=== PATIENT | male | born 2000 | race Caucasian/White ===

== ENCOUNTER 2022-01-29 11:11 | Observation (INO) ==
[2022-01-29] MEDS ORDERED: SODIUM CHLORIDE 0.9% 1000ML 1,000 ML IV STA (11:44)
[2022-01-29] MEDS ORDERED: CAPSAICIN CR 0.075% 60 GM TUBE EXT STA (11:44)
[2022-01-29] MEDS ORDERED: METOCLOPRAMIDE HCL INJ 5 MG/ML 2 ML VIAL IV ONE (11:45)
[2022-01-29] MEDS ORDERED: SODIUM CHLORIDE 0.9% 1000ML 1,000 ML IV ONE (11:45)
[2022-01-29] MEDS ORDERED: diphenhydrAMINE 50 MG/ML VIAL IV STA (11:45)
[2022-01-29 12:00] LABS: Basophils # (auto) 0.03 K/uL (0-0.2); Basophils % (auto) 0.4 %; Eosinophils # (auto) 0.03 K/uL (0-0.50); Eosinophils % (auto) 0.4 %; Hematocrit (blood only) 47.6 % (40.1-51.0); Hemoglobin 17.5 g/dl (14.0-18.0); Immature Granulocytes # (auto) 0.03 K/uL (0.00-0.02); Immature Granulocytes % (auto) 0.4 %; Lymphocytes # (auto) 1.21 K/uL (1.2-3.4); Lymphocytes % (auto) 14.5 %; Mean Corpuscular Hemoglobin 32.6 pg (25.0-34.0); Mean Corpuscular Hgb Conc 36.8 g/dL (32.0-36.0); Mean Corpuscular Volume 88.6 fL (80.0-100.0); Mean Platelet Volume 10.2 fL (9.4-12.4); Monocytes # (auto) 0.64 K/uL (0.24-0.82); Monocytes % (auto) 7.7 %; Neutrophils # (auto) 6.42 K/uL (1.4-6.5); Neutrophils % (auto) 76.6 %; Platelet Count 221 K/uL (130-400); RDW Coefficient of Variation 12.5 % (11.5-14.5); RDW Standard Deviation 40.5 fL (36.4-46.3); Red Blood Count 5.37 M/uL (4.63-6.08); White Blood Count 8.36 K/ul (4.8-10.8)
[2022-01-29] MEDS ORDERED: LORazepam 1 MG TAB SL STA (12:00)
--- NOTE | 2022-01-29 12:13 | XRay Report ---
SINGLE VIEW CHEST CLINICAL HISTORY: Atypical chest pain. Nausea and vomiting. FINDINGS: 2 AP, portable, upright chest radiographs are obtained. No prior studies are available for comparison at the time of dictation. The cardiomediastinal silhouette is unremarkable. An accessory a zygous fissure is incidentally noted. The lungs and pleural spaces are clear. No pneumothorax is seen . The bony thorax is grossly intact. IMPRESSION: No active disease in the chest. ACT 112: Negative or not required by law. Electronically signed by: Guillermo Kinney M.D. 01/29/2022 12:12 PM
--- NOTE | 2022-01-29 12:27 | Emergency Department Note ---
History of Present Illness General Chief Complaint: Abdominal Pain Stated Complaint: CHEST PAIN x 3 days Time Seen by Provider: 01/29/22 11:39 History of Present Illness Provider Complaint: abdominal pain Onset (ago): 3 day(s) Pain Consistency: intermittent Location: epigastric Radiation: chest Severity: moderate Maximum Pain Intensity: 8 Current Pain Intensity: 8 Quality: + stabbing and + sharp Relieved By: + eating Exacerbated By: + nothing Context: no foreign travel, no sick contacts, no recent antibiotic use or no recent injury Associated Symptoms: + nausea, + vomiting and + chest pain; no diarrhea, no fever, no chills, no constipation, no dysuria, no hematemesis, no hematochezia, no melena, no hematuria, no anorexia, no headache, no neck pain, no back pain and no breathing difficulty Patient states he is an outpatient appointment scheduled for tomorrow but states he cannot wait that long. Home Medications Medication Instructions Recorded Confirmed Type famotidine 20 mg tablet (Pepcid) 20 mg PO BID 10 days #20 tabs 01/26/22 01/29/22 Rx Allergies Allergy/AdvReac Type Severity Reaction Status Date / Time No Known Allergies Allergy Verified 01/29/22 14:04 Past Med/Surg History Medical History No pertinent family history No pertinent past medical history Surgical History No pertinent past surgical history Social History Smoking Status: Current every day smoker Tobacco Type: Cigarettes Cigarettes Per Day: 20; Second Hand Exposure: No; Do You Dip or Chew Tobacco: No; Hx Alcohol Use: Yes Alcohol type: beer Hx Substance Use: Yes Prescribed Medications: Marijuana Last Used Substance: Days (ago) Preferred Language: Guinean Communication Ability: Effective Onsite Case Manager Required: No Beliefs That Will Affect Care: None Current Living Situation: Parent Other Information That Helps Us Care for You: No Feels Safe at Home: Yes Safety Concerns: Feels Safe At This Time Assistive Devices: None Review of Systems A total of 10 systems reviewed and were otherwise negative Physical Exam Vital Signs: Vital Signs - 24 hr 01/29/22 11:15 01/29/22 12:24 01/29/22 11:44 Temperature 36.2 C L Temperature Source Temporal Artery Sc an Pulse Rate 62 Pulse Rate [Apical ] 57 L Pulse Rhythm Regular Pulse Rhythm [Apic al] Regular Pulse Strength Normal Pulse Strength [Ap ical] Normal Respiratory Rate 24 18 Respiratory Effort / Characteristics Non-Labored Sponta neous Non-Labored Sponta neous Respiratory Depth Normal Normal Respiratory Patter n Regular Regular Blood Pressure [Ri ght Arm] 136/69 Blood Pressure Verena n [Right Arm] 91 Blood Pressure Pos ition Sitting Blood Pressure Pos ition [Right Arm] Lying Pulse Oximetry 99 97 98 Oxygen Delivery Me thod Room Air Room Air Room Air Sepsis Recent Feve r Within 48 Hours No Sepsis New/Unexpla ined Change in Men joan Status No Sepsis Action Take n by Nursing No Action Required 01/29/22 13:31 Temperature Temperature Source Pulse Rate Pulse Rate [Apical ] 61 Pulse Rhythm Pulse Rhythm [Apic al] Regular Pulse Strength Pulse Strength [Ap ical] Respiratory Rate 18 Respiratory Effort / Characteristics Non-Labored Respiratory Depth Normal Respiratory Patter n Regular Blood Pressure [Ri ght Arm] 122/67 Blood Pressure Verena n [Right Arm] 85 Blood Pressure Pos ition Blood Pressure Pos ition [Right Arm] Lying Pulse Oximetry 97 Oxygen Delivery Me thod Room Air Sepsis Recent Feve r Within 48 Hours Sepsis New/Unexpla ined Change in Men joan Status Sepsis Action Take n by Nursing Physical Exam: Physical Exam GENERAL: He is oriented to person, place, and time. He appears well-developed and well-nourished. He does not appear distressed. HENT: Exam performed. - Head: Normocephalic and atraumatic. - Right Ear: External ear normal. No mastoid tenderness. - Left Ear: External ear normal. No mastoid tenderness. - Mouth/Throat: The oropharynx is clear and moist. No trismus in the jaw. No dental abscesses or uvula swelling. No oropharyngeal exudate or tonsillar abscesses. EYES: Conjunctivae and EOM are normal. Pupils are equal, round, and reactive to light. Right eye exhibits no discharge. Left eye exhibits no discharge. No scleral icterus. NECK: Normal range of motion. Neck supple. No JVD present. No spinous process tenderness present. No carotid bruit present. No rigidity. No tracheal deviation and normal range of motion present. No Brudzinski's sign and no Kernig's sign noted. CV: Normal rate, regular rhythm, normal heart sounds and intact distal pulses. There is no peripheral edema. Palpable radial pulses bue. PULM/CHEST: Effort normal and breath sounds normal. No respiratory distress. No stridor. He has no wheezes. He has no rales. - Chest Wall: He exhibits no tenderness. ABD: The abdomen is soft. Bowel sounds are normal. He has no distension. No mass is present. There is no tenderness. There is no rebound, no guarding, no Diamond's sign and no tenderness at McBurney's point. Rovsig negative. MUSC/SKEL: Normal range of motion. There is no peripheral edema, tenderness or deformity. LYMPH: No cervical adenopathy. NEURO: He is alert and oriented to person, place, and time. He has normal strength. No cranial nerve deficit or sensory deficit. Coordination and gait normal. GCS eye subscore is 4. GCS verbal subscore is 5. GCS motor subscore is 6. Cerebellar tests wnl. SKIN: Skin is warm and dry. He is not diaphoretic. PSYCH: He has a normal mood and affect. Behavior is normal. Judgment and thought content normal. Course Course 1139: The patient was evaluated in room C8. A complete history and physical exam was performed Cardiac monitoring: An order was placed for continuous cardiac monitoring. The monitor shows a rate of 60 with sinus rhythm EMR reviewed. This is the patient's third visit to the emergency department last 3 days. The patient's abdominal pain nausea vomiting was thought to be attributed to his spicy food usage, alcohol abuse, and marijuana abuse. Patient has had a CT scan of the abdomen and ultrasound of the abdomen which were negative in the last 3 days. 1300: Vital signs stable. Labs and imaging within normal limits. Given this is the patient's third visit to the emergency department last 3 days, The patient will be admitted to the [facility] service for observation. Administered Medications Acetaminophen (Acetaminophen 325 Mg Tab) 650 mg PO Q6H PRN PRN Reason: pain Stop: 02/28/22 16:04 Last Admin: 01/29/22 16:58 Dose: 650 mg Documented By: SR Sodium Chloride (Nss 1000ml) 1,000 mls @ 80 mls/hr IV .[id number] HUMBLE Stop: 02/28/22 16:04 Last Admin: 01/29/22 16:22 Dose: 80 mls/hr Documented By: MYRON Nicotine (Nicotine 14 Mg/24 Hr Patch) 14 mg TD QAM HUMBLE Stop: 02/28/22 14:44 Last Admin: 01/29/22 15:37 Dose: 14 mg Documented By: MYRON Ondansetron HCl (Ondansetron Inj 2 Mg/Ml 2 Ml Vial) 4 mg IV Q6H PRN PRN Reason: Nausea And Vomiting Stop: 02/28/22 13:36 Last Admin: 01/29/22 16:39 Dose: 4 mg Documented By: SR Discontinued Medications Capsaicin (Capsaicin Cr 0.075% 60 Gm Tube) 1 appln EXT NOW STA Stop: 01/29/22 11:45 Last Admin: 01/29/22 12:13 Dose: 1 appln Documented By: MYRON Diphenhydramine HCl (Diphenhydramine 50 Mg/Ml Vial) 25 mg IV NOW STA Stop: 01/29/22 11:46 Last Admin: 01/29/22 12:13 Dose: 25 mg Documented By: MYRON Sodium Chloride (Nss 1000ml) 1,000 mls @ 999 mls/hr IV .Q1H1M STA Stop: 01/29/22 12:44 Last Infusion: 01/29/22 13:15 Dose: 0 mls/hr Documented By: Admin: 01/29/22 12:14 Dose: 999 mls/hr Documented By: MYRON Sodium Chloride (Nss 1000ml) 1,000 mls @ 999 mls/hr IV .Q1H1M ONE Stop: 01/29/22 12:45 Last Infusion: 01/29/22 13:15 Dose: 0 mls/hr Documented By: Admin: 01/29/22 12:14 Dose: 999 mls/hr Documented By: MYRON Lorazepam (Lorazepam 1 Mg Tab) 1 mg SL NOW STA Stop: 01/29/22 12:01 Last Admin: 01/29/22 12:15 Dose: 1 mg Documented By: MYRON Metoclopramide HCl (Metoclopramide Hcl Inj 5 Mg/Ml 2 Ml Vial) 5 mg IV ONE ONE Stop: 01/29/22 11:46 Last Admin: 01/29/22 12:13 Dose: 5 mg Documented By: MYRON Metoclopramide HCl (Metoclopramide Hcl Inj 5 Mg/Ml 2 Ml Vial) 10 mg IV NOW STA Stop: 01/29/22 18:33 Last Admin: 01/29/22 18:42 Dose: 10 mg Documented By: YOLY Morphine Sulfate (Morphine Sulfate 4 Mg/Ml 1 Ml Carp\Vial) 3 mg IV NOW STA Stop: 01/29/22 17:33 Last Admin: 01/29/22 17:39 Dose: 3 mg Documented By: Medical Decision Making Laboratory Data Result diagrams: 01/29/22 11:50 01/29/22 11:50 Lab Results 01/29/22 01/29/22 01/29/22 Range/Units 11:50 11:50 12:20 WBC 8.36 (4.8-10.8) K/ul RBC 5.37 (4.63-6.08) M/uL Hgb 17.5 (14.0-18.0) g/dl Hct 47.6 (40.1-51.0) % MCV 88.6 (80.0-100.0) fL MCH 32.6 (25.0-34.0) pg MCHC 36.8 H (32.0-36.0) g/dL RDW Std Deviation 40.5 (36.4-46.3) fL RDW Coeff of [place] 12.5 (11.5-14.5) % Plt Count 221 (130-400) K/uL MPV 10.2 (9.4-12.4) fL Immature Gran % (Auto) 0.4 % Neut % (Auto) 76.6 % Lymph % (Auto) 14.5 % [place] % (Auto) 7.7 % Eos % (Auto) 0.4 % Baso % (Auto) 0.4 % Neut # (Auto) 6.42 (1.4-6.5) K/uL Lymph # (Auto) 1.21 (1.2-3.4) K/uL [place] # (Auto) 0.64 (0.24-0.82) K/uL Eos # (Auto) 0.03 (0-0.50) K/uL Baso # (Auto) 0.03 (0-0.2) K/uL Immature Gran # (Auto) 0.03 H (0.00-0.02) K/uL Sodium 142 (136-145) mmol/L Potassium 3.6 (3.5-5.1) mmol/L Chloride 110 H (98-107) mmol/L Carbon Dioxide 22 (21-32) mmol/L Anion Gap 10 (3-11) BUN 11 (6-23) mg/dl Creatinine 1.01 (0.6-1.4) mg/dl Est Cr Clr Drug Dosing 144.5 ml/min Est GFR ( Amer) 121.8 ml/min Est GFR (Non-Af Amer) 105.1 ml/min BUN/Creatinine Ratio 10.9 (10-20) Glucose 103 H (70-99(Fasting)) mg/dl Calcium 9.8 (8.5-10.1) mg/dl Total Bilirubin 1.6 H D (0.2-1.0) mg/dl AST 19 (13-39) U/L ALT 22 (7-52) U/L Alkaline Phosphatase 70 (34-104) U/L Troponin I High Sens 4.4 (0-20) pg/ml Total Protein 7.0 (6.0-8.3) gm/dl Albumin 4.5 (3.4-5.0) gm/dl Globulin 2.5 (2.5-4.0) gm/dl Albumin/Globulin Ratio 1.8 (0.9-2) Lipase 10 L (11-82) U/L SARS-CoV-2, RNA, NAAT NEGATIVE (NEGATIVE) Imaging Data Radiologist's Impression: Chest X-Ray 01/29/22 11:44 SINGLE VIEW CHEST CLINICAL HISTORY: Atypical chest pain. Nausea and vomiting. FINDINGS: 2 AP, portable, upright chest radiographs are obtained. No prior studies are available for comparison at the time of dictation. The cardiomediastinal silhouette is unremarkable. An accessory azygous fissure is incidentally noted. The lungs and pleural spaces are clear. No pneumothorax is seen. The bony thorax is grossly intact. IMPRESSION: No active disease in the chest. ACT 112: Negative or not required by law. Electronically signed by: Guillermo Kinney M.D. 01/29/2022 12:12 PM ECG Data Indication: abdominal pain and chest pain Rate (beats per minute): 61 Rhythm: normal sinus Findings: no ST depression, no ST elevation or no prolonged QT MDM Narrative Vital signs stable. Labs and imaging within normal limits. Given this is the patient's third visit to the emergency department last 3 days, The patient will be admitted to the [facility] service for observation. Impression & Plan Abdominal pain, Intractable nausea and vomiting Discharge Plan Visit Data Chief Complaint: Abdominal Pain Stated Complaint: CHEST PAIN x 3 days ED Provider: Rodrick Connell Discharge Problem: Abdominal pain, Intractable nausea and vomiting Patient Disposition: Admitted As Inpatient Discharge Instructions Interventions: ED Discharge Assessment Last Done: 01/29/22 17:33
[2022-01-29 12:32] LABS: Albumin Globulin Ratio 1.8 (0.9-2); Albumin Level 4.5 gm/dl (3.4-5.0); BUN Creatinine Ratio 10.9 (10-20); Bilirubin,Total 1.6 mg/dl (0.2-1.0); Calcium 9.8 mg/dl (8.5-10.1); Creatinine Clr Calc Pharmacy 144.5 ml/min; Est GFR (African American) 121.8 ml/min; Est GFR (Non-African American) 105.1 ml/min; Globulin 2.5 gm/dl (2.5-4.0); Potassium 3.6 mmol/L (3.5-5.1)
[2022-01-29 12:36] LABS: Troponin I High Sensitivity 4.4 pg/ml (0-20)
--- NOTE | 2022-01-29 12:37 | Electrocardiogram Report ---
Test Reason : Blood Pressure : / mmHG Vent. Rate : 061 BPM Atrial Rate : 061 BPM P-R Int : 148 ms QRS Dur : 118 ms QT Int : 442 ms P-R-T Axes : 059 065 070 degrees QTc Int : 444 ms Sinus rhythm with marked sinus arrhythmia Borderline ECG When compared with ECG of 26-JAN-2022 18:33, Premature supraventricular complexes are no longer Present Confirmed by Gerard Boykin ([id number]) on 01/29/2022 12:37:20 PM Referred By: REFERRED SELF Confirmed By:Layton Boykin
--- NOTE | 2022-01-29 13:13 | History & Physical Report ---
Date of Service January 29, 2022 Assessment & Plan (1) GERD with esophagitis: (2) Nausea & vomiting: (3) Epigastric pain: Plan 21 year old male with h/o tobacco abuse, alcohol abuse, cannabis abuse presented to the ED with intractable N/V/epigastric pain ongoing for the past 3 days. This is is third visit to ED in the past 3 days. RUQ US 01/26- 1. Distended gallbladder containing biliary sludge. 2. No shadowing gallstones are identified and there is no sonographic evidence of acute cholecystitis. CT A/P 01/28 1. Mild circumferential thickening of distal esophagus. This suggests a mild esophagitis. 2. No evidence for bowel obstruction. 3. Normal appendix. 4. No hydronephrosis. N/V/epigastric pain- likely from GERD with esophagitis/gastritis, likely contributed by his tobacco, alcohol abuse and NSAIDs. No ALARM signs. No hematemesis, melena, fever, chills. Labs including CBC, BMP, LFT, lipase unremarkable. CT A/P with mild esophagitis. RUQ US reviewed as above. Patient was discharged on pepcid but continues to have intractable symptoms and could not wait for GI appointment tomorrow and came to the ED. - Will start on protonix bid, iv zofran prn, NSS, diet as tolerated. Maalox prn. - Recommended quitting tobacco, alcohol, cannabis and NSAIDs - Will have GI evaluation while inhouse as this is his third ED visit for the same complaint Tobacco abuse- smokes half pack a day. Declined nicotine patch. Recommended quitting Alcohol abuse- states he was drinking 12-24 pack beer from January 16- but none since then, no hard liquors. Recommenced quitting Cannabis use- uses medical marijuana from a friend. Hasn't use for a week now. Recommended cessation DVT ppx- SCDs. ambulation Full code Dispo- Observation to [facility] History of Present Illness Chief Complaint: N/V/abd pain Primary Care Provider: NO PCP 21 year old male with h/o tobacco abuse, alcohol abuse, cannabis abuse presented to the ED with intractable nausea, vomiting and epigastric pain. Started 3 days ago after eating hot spicy food and came to the ED on 01/26. After evaluation, thought to have gastritis and sent home on pepcid but came back yesterday with persistent symptoms. He was discharged home after symptomatic treatment in ED but came back today with persistent symptoms. He has GI appointment tomorrow but could not wait for it because of the ongoing symptoms and came to the ED. In the ED, he was given NSS, reglan, benadryl, ativan, capsaicin and was quite comfortable during my encounter. States he has burning pain in epigastrium and retrosternal area. Whenever he tries to eat or drink something, it hurts more and he throws up. Symptoms are better if he is not ea ting or drinking anything. States his last meal was probably 4 days ago. No fever, chills, weight loss, hematemesis, hematochezia. He smokes half pack a day and was drinking lots of beer from 01/16-01/22. Also uses medical marijuana daily, last was about a week ago. Uses advil intermittently for his foot pain, last one was 4 tabs of OTC advil 4 days ago. Denies any other medical conditions. Allergies Allergy/AdvReac Type Severity Reaction Status Date / Time No Known Allergies Allergy Verified 01/26/22 21:34 Home Medications Medication Instructions Recorded Confirmed Type cephalexin 500 mg tablet 500 mg PO QID 01/26/22 01/26/22 History doxycycline monohydrate 100 mg 100 mg PO BID 01/26/22 01/26/22 History tablet famotidine 20 mg tablet (Pepcid) 20 mg PO BID 10 days #20 tabs 01/26/22 Rx Past Med/Surg History Medical History No pertinent family history No pertinent past medical history Surgical History No pertinent past surgical history Social History Smoking Status: Current every day smoker Tobacco Type: Cigarettes Hx Alcohol Use: Yes Hx Substance Use: Yes Prescribed Medications: Marijuana Preferred Language: Frisian Feels Safe at Home: Yes Review of Systems Review of Systems: All systems reviewed & are unremarkable except as noted in Subjective Physical Exam Physical Exam: General: Lying comfortably in bed, not in distress, on room air HEENT: EOMI, TEE, MMM Chest: Clear breath sounds bilaterally, no wheezes or crackles CVS: Regular rate and rhythm, normal heart sounds, no murmur Abdomen: Soft, epigastric tenderness, not distended, normal bowel sounds Neuro: Awake, alert, oriented, conversing well, non focal Extremities: No cyanosis, clubbing or edema Results & Data Results & Data ([facility]) Vital Signs (Past 12 Hours) Vital Signs Temp Pulse Pulse Resp BP Pulse Ox O2 Del Method 01/29/22 11:44 98 Room Air 01/29/22 12:24 57 L 18 136/69 97 Room Air 01/29/22 11:15 36.2 C L 62 24 99 Room Air Laboratory Results Short CBC 01/29/22 Range/Units 11:50 WBC 8.36 (4.8-10.8) K/ul Hgb 17.5 (14.0-18.0) g/dl Hct 47.6 (40.1-51.0) % Plt Count 221 (130-400) K/uL BMP 01/29/22 11:50 Sodium 142 Potassium 3.6 Chloride 110 H Carbon Dioxide 22 BUN 11 Creatinine 1.01 Glucose 103 H Calcium 9.8 Liver Function 01/29/22 Range/Units 11:50 Total Bilirubin 1.6 H D (0.2-1.0) mg/dl AST 19 (13-39) U/L ALT 22 (7-52) U/L Alkaline Phosphatase 70 (34-104) U/L Albumin 4.5 (3.4-5.0) gm/dl Diagnostic Findings Chest X-Ray 01/29/22 11:44 SINGLE VIEW CHEST CLINICAL HISTORY: Atypical chest pain. Nausea and vomiting. FINDINGS: 2 AP, portable, upright chest radiographs are obtained. No prior studies are available for comparison at the time of dictation. The cardiomediastinal silhouette is unremarkable. An accessory azygous fissure is incidentally noted. The lungs and pleural spaces are clear. No pneumothorax is seen. The bony thorax is grossly intact. IMPRESSION: No active disease in the chest. ACT 112: Negative or not required by law. Electronically signed by: Guillermo Kinney M.D. 01/29/2022 12:12 PM (1) Nausea & vomiting Vomiting type: unspecified Qualified Code(s): R11.2 - Nausea with vomiting, unspecified
[2022-01-29] MEDS: NICOTINE 14 MG/24 HR PATCH TD SCH (15:37)
[2022-01-29] MEDS ORDERED: ACETAMINOPHEN 325 MG TAB PO PRN (16:05)
[2022-01-29] MEDS ORDERED: ALUMINUM/MAGNESIUM SUSP 30 ML UDC PO PRN (16:05)
[2022-01-29] MEDS: SODIUM CHLORIDE 0.9% 1000ML 1,000 ML IV SCH (16:22)
[2022-01-29] MEDS: ONDANSETRON INJ 2 MG/ML 2 ML VIAL IV PRN ×2 (16:39→23:52)
[2022-01-29] MEDS ORDERED: MoRPHine SULFATE 4 MG/ML 1 ML CARP\\VIAL IV STA (17:32)
[2022-01-29] MEDS ORDERED: METOCLOPRAMIDE HCL INJ 5 MG/ML 2 ML VIAL IV STA (18:32)
[2022-01-29] MEDS ORDERED: HYDROmorphone INJ 0.5 MG/0.5 ML SYR IV STA (18:34)
[2022-01-29] MEDS: PANTOprazole 40 MG in SYRINGE 0 ML IV SCH (21:07)
[2022-01-30] MEDS: SODIUM CHLORIDE 0.9% 1000ML 1,000 ML IV SCH ×2 (05:00→19:16)
[2022-01-30 07:03] LABS: Hematocrit (blood only) 42.3 % (40.1-51.0); Hemoglobin 15.6 g/dl (14.0-18.0); Mean Corpuscular Hgb Conc 36.9 g/dL (32.0-36.0); Mean Corpuscular Volume 89.4 fL (80.0-100.0); Mean Platelet Volume 10.2 fL (9.4-12.4); Platelet Count 178 K/uL (130-400); RDW Coefficient of Variation 12.6 % (11.5-14.5); RDW Standard Deviation 40.6 fL (36.4-46.3); Red Blood Count 4.73 M/uL (4.63-6.08); White Blood Count 6.63 K/ul (4.8-10.8)
[2022-01-30 07:32] LABS: Albumin Level 3.8 gm/dl (3.4-5.0); BUN Creatinine Ratio 9.9 (10-20); Bilirubin Direct 0.2 mg/dl (0-0.2); Bilirubin,Total 1.2 mg/dl (0.2-1.0); Calcium 8.3 mg/dl (8.5-10.1); Creatinine Clr Calc Pharmacy 160.4 ml/min; Est GFR (African American) 138.2 ml/min; Est GFR (Non-African American) 119.2 ml/min; Potassium 3.5 mmol/L (3.5-5.1); Total Protein 5.9 gm/dl (6.0-8.3)
[2022-01-30] MEDS: ONDANSETRON INJ 2 MG/ML 2 ML VIAL IV PRN ×2 (07:39→17:38)
[2022-01-30] MEDS: PANTOprazole 40 MG in SYRINGE 0 ML IV SCH ×2 (07:39→22:40)
[2022-01-30] MEDS ORDERED: MoRPHine SULFATE 2 MG/ML CARP IV STA (08:38)
[2022-01-30] MEDS ORDERED: PROMETHAZINE HCL 25 MG in SODIUM CHLORIDE 0.9% 50 ML IV STA (09:44)
[2022-01-30] MEDS ORDERED: LORazepam 2 MG in SYRINGE 1 ML IV STA (09:47)
--- NOTE | 2022-01-30 10:31 | Gastrointestinal Consultation ---
Date of Consultation January 30, 2022 Assessment & Plan (1) Intractable nausea and vomiting: (2) Epigastric pain: Plan He has intractable N/V .I suspect the underlaying cause is cannabinoid use. However, gallbladder dx is considered (sludge in gallbladder). He does not have a pattern of RUQ pain after eating high fat foods. Also, he has esophagitis on CT which is likely caused by all this vomiting and is now likely contributing. Supervising Physician Co-Signing Physician Notes I tried to round on the patient twice today but he was not available during either attempt. The patient was seen by my nurse practitioner and he admits to a history of cannabis consumption. Based on the patient's history we suspect that the patient has cannabis hyperemesis. Would recommend discontinuation of cannabis, the patient could certainly benefit from endoscopic evaluation and this could be done either as an inpatient next week or as an outpatient over the next few weeks should he be discharged. Please call with any questions or concerns over the weekend History of Present Illness Reason for Consultation: Vomiting Requesting Physician: Dr. Greenfield Attending Physician: Ravinder Mcintosh MD History of Present Illness Mr. Schafer is a 21 yr old male pt w/o a PCP who is otherwise healthy who has been struggling with morning nausea for about 2 yrs. About 4 days ago, the nausea/vomiting was severe and has persisted since then. Today, he has developed epigastric burning but prior to today has not had any abdominal pain. He denies any black/red BMs and has not vomited any blood or coffee grounds emesis. On exam, he is vomiting and dry heaving. He is a bit anxious. He asks for an EGD and for "help with this vomiting." OTC Pepcid has not been helpful. Zofran here did not have an effect this morning. He notes that taking a long shower typically helps but did not this morning. He smokes marijuana, most recently a week ago. Denies any other recreational drugs. Allergies Allergy/AdvReac Type Severity Reaction Status Date / Time No Known Allergies Allergy Verified 01/29/22 14:04 Home Medications Medication Instructions Recorded Confirmed Type famotidine 20 mg tablet (Pepcid) 20 mg PO BID 10 days #20 tabs 01/26/22 01/29/22 Rx Patient History Medical History No pertinent family history No pertinent past medical history Surgical History No pertinent past surgical history Social History Smoking Status: Current every day smoker Tobacco Type: Cigarettes Cigarettes Per Day: 20; Second Hand Exposure: No; Do You Dip or Chew Tobacco: No; Hx Alcohol Use: Yes Alcohol type: beer Hx Substance Use: Yes Prescribed Medications: Marijuana Last Used Substance: Days (ago) Preferred Language: Malawian Communication Ability: Effective Interior Painter Required: No Beliefs That Will Affect Care: None Current Living Situation: Parent Other Information That Helps Us Care for You: No Feels Safe at Home: Yes Safety Concerns: Feels Safe At This Time Assistive Devices: None Review of Systems Review of Systems: ROS: Gen: Denies weakness, fevers, weight loss Eyes: No eye redness, or pain, no recent vision changes Resp: No SOB, no cough Cardio: No palpitations/irregular beats, no chest pain GI: As per HPI, otherwise (-) : Denies pain on urination Skin: No jaundice, itching or new rashes Psych: + anxious A total of 12 systems were reviewed, all others (-) Physical Exam Constitutional: WD/WN, vitals as above Eyes: PERRL, conjunctivae normal, anicteric sclerae ENMT: external ear and nose normal, oropharynx normal Neck: trachea midline, no thyromegaly Respiratory: normal respiratory effort, lungs clear to auscultation Cardiovascular: RRR, no murmur, no edema Gastrointestinal (Abdomen): Inspection/Auscultation: abdomen normal to inspection and + hypoactive bowel sounds; abdomen not distended Percussion/Palpation: + abdomen tender (mild, diffuse) and abdomen soft Skin: no rashes, warm and dry Neurologic: PERRL, EOMI, accommodation nl, no face palsy, no dysarthria Psychiatric: Orientation: alert and oriented x 3 Mood: + anxious mood Lymphatic: no cervical or axillary lymphadenopathy Results & Data ([facility] [place]) Vital Signs (Past 12 Hours) Vital Signs Temp Pulse Resp BP Pulse Ox O2 Del Method 01/30/22 07:24 36.6 C 50 L 18 112/61 94 Room Air 01/29/22 22:34 36.6 C 69 15 130/69 96 Room Air Laboratory Results WBC 6.6, Hb 15.6, Hct 42.3, Plts 178, Na 140, K 3.5, Cl 109, CO2 25, BUN 9, Cr 0.9, glucose 93. Diagnostic Findings CTAP 01/28: 1. Mild circumferential thickening of distal esophagus. This suggests a mild esophagitis. 2. No evidence for bowel obstruction. 3. Normal appendix. 4. No hydronephrosis. GB US 01/26: 1. Distended gallbladder containing biliary sludge. 2. No shadowing gallstones are identified and there is no sonographic evidence of acute cholecystitis. CXR 01/29/22: normal.
--- NOTE | 2022-01-30 11:00 | Hospitalist Progress Note ---
Date of Service January 30, 2022 Assessment & Plan (1) GERD with esophagitis: (2) Nausea & vomiting: (3) Epigastric pain: Plan This is a 21 year old male with h/o tobacco abuse, alcohol abuse, cannabis abuse presented to the ED with intractable N/V/epigastric pain ongoing for the past 3 days. This is is third visit to ED in the past 3 days. RUQ US 01/26- 1. Distended gallbladder containing biliary sludge. 2. No shadowing gallstones are identified and there is no sonographic evidence of acute cholecystitis. CT A/P 01/28 1. Mild circumferential thickening of distal esophagus. This suggests a mild esophagitis. 2. No evidence for bowel obstruction. 3. Normal appendix. 4. No hydronephrosis. Nausea Vomiting Epigastric pain Likely from GERD with esophagitis/gastritis, likely contributed by his tobacco, alcohol abuse and NSAIDs. No hematemesis, melena, fever, chills. Labs including CBC, BMP, LFT, lipase unremarkable CT A/P with mild esophagitis. RUQ US reviewed as above. Patient was discharged on Pepcid but continues to have intractable symptoms and could not wait for GI appointment and came to the ED Continue protonix bid, iv zofran and phenergan prn, NSS Counseled on cessation of tobacco, alcohol, cannabis and NSAIDs Evaluated by GI this morning. Expect underlying cause of intractable nausea vomiting is cannabis hyperemesis Could benefit from endoscopic evaluation either as an inpatient on Wednesday or an outpatient in the next few weeks if patient improves Diet advanced, continue antiemetics, monitor overnight DVT ppx- SCDs, early ambulation Full code Dispo- Observation to med/surg Admission and Anticipated Discharge Date Admission Date: January 29, 2022 Supervising Physician Co-Signing Physician Notes Pt was seen and examined for nausea and vomiting. Agreed with Namrata CASTRO exam, assessment and plan. Nausea and vomiting seems to improve. Starting on clear liquid diet. GI on board. Plan for EGD as an outpatient next week, but if patient remains in the hospital until longer, will possible schedule him on Wednesday. Continue monitor electrolytes. Will advance diet slowly as tolerated. Aby coleman monitor closely. MD Dayna Subjective Patient seen and examined in 314-1. No longer having abdominal pain. Had a sip of water this morning with following emesis around 9 AM. No further nausea or vomiting. Improved on Phenergan ordered by GI this morning. Denies any fever, chills, headache, lightheadedness, chest pain, shortness of breath, dysuria, diarrhea or constipation. Scheduled for endoscopy on Wednesday. Counseled on importance of cessation of cannabis as well as tobacco and alcohol. Review of Systems Review of Systems: At least ten systems reviewed and negative except as noted in the HPI. Physical Exam Physical Exam: Gen: WD/WN, NAD, lying in bed, A&Ox3 HEENT: Normocephalic, atraumatic, conjunctivae moist, sclerae anicteric, mucous membranes moist Lung: Clear to Auscultation bilaterally, no wheezes/rales/rhonchi Heart: Regular rate, regular rhythm, no murmurs, rubs, or gallops Abdomen: Soft, NT, ND +BS x 4 Extremities: no edema Skin: Warm, no rash Results & Data Results & Data ([facility]) Vital Signs (Past 12 Hours) Vital Signs Temp Pulse Resp BP Pulse Ox O2 Del Method 01/30/22 07:24 36.6 C 50 L 18 112/61 94 Room Air Laboratory Results Short CBC 01/30/22 Range/Units 06:37 WBC 6.63 (4.8-10.8) K/ul Hgb 15.6 (14.0-18.0) g/dl Hct 42.3 (40.1-51.0) % Plt Count 178 (130-400) K/uL BMP 01/30/22 06:37 Sodium 140 Potassium 3.5 Chloride 109 H Carbon Dioxide 25 BUN 9 Creatinine 0.91 Glucose 93 Calcium 8.3 L Liver Function 01/30/22 Range/Units 06:37 Total Bilirubin 1.2 H (0.2-1.0) mg/dl Direct Bilirubin 0.2 (0-0.2) mg/dl AST 14 (13-39) U/L ALT 17 (7-52) U/L Alkaline Phosphatase 59 (34-104) U/L Albumin 3.8 (3.4-5.0) gm/dl Diagnostic Findings Chest X-Ray 01/29/22 11:44 SINGLE VIEW CHEST CLINICAL HISTORY: Atypical chest pain. Nausea and vomiting. FINDINGS: 2 AP, portable, upright chest radiographs are obtained. No prior studies are available for comparison at the time of dictation. The cardiomediastinal silhouette is unremarkable. An accessory azygous fissure is incidentally noted. The lungs and pleural spaces are clear. No pneumothorax is seen. The bony thorax is grossly intact. IMPRESSION: No active disease in the chest. ACT 112: Negative or not required by law. Electronically signed by: Guillermo Kinney M.D. 01/29/2022 12:12 PM (1) Nausea & vomiting Vomiting type: unspecified Qualified Code(s): R11.2 - Nausea with vomiting, unspecified
--- NOTE | 2022-01-30 17:56 | Electrocardiogram Report ---
Test Reason : Blood Pressure : / mmHG Vent. Rate : 074 BPM Atrial Rate : 074 BPM P-R Int : 146 ms QRS Dur : 116 ms QT Int : 450 ms P-R-T Axes : 071 068 068 degrees QTc Int : 499 ms Normal sinus rhythm with sinus arrhythmia Prolonged QT Abnormal ECG When compared with ECG of 29-JAN-2022 11:43, QT has lengthened Confirmed by Gerard Boykin ([id number]) on 01/30/2022 5:56:05 PM Referred By: REFERRED SELF Confirmed By:Layton Boykin
[2022-01-30] MEDS: NICOTINE 14 MG/24 HR PATCH TD SCH (18:33)
[2022-01-30 23:23] LABS: Amphetamines+Metham, Urine Neg (Neg); Barbiturates, Urine Neg (Neg); Benzodiazepine, Urine Neg (Neg); Cocaine, Urine Neg (Neg); MDMA (Ecstacy), Urine Neg (Neg); Methadone, Urine Neg (Neg); Opiate, Urine Pos (Neg); Phencyclidine, Urine Neg (Neg)
[2022-01-31 07:01] LABS: Hematocrit (blood only) 45.6 % (40.1-51.0); Hemoglobin 16.3 g/dl (14.0-18.0); Mean Corpuscular Hemoglobin 32.5 pg (25.0-34.0); Mean Corpuscular Hgb Conc 35.7 g/dL (32.0-36.0); Mean Platelet Volume 10.2 fL (9.4-12.4); Platelet Count 171 K/uL (130-400); RDW Coefficient of Variation 12.5 % (11.5-14.5); RDW Standard Deviation 40.8 fL (36.4-46.3); Red Blood Count 5.01 M/uL (4.63-6.08); White Blood Count 6.94 K/ul (4.8-10.8)
[2022-01-31 07:26] LABS: BUN Creatinine Ratio 8.8 (10-20); Calcium 8.9 mg/dl (8.5-10.1); Creatinine Clr Calc Pharmacy 143.1 ml/min; Est GFR (African American) 120.4 ml/min; Est GFR (Non-African American) 103.8 ml/min; Potassium 3.5 mmol/L (3.5-5.1)
[2022-01-31] MEDS: PANTOprazole 40 MG in SYRINGE 0 ML IV SCH (13:12)
[2022-01-31] MEDS: NICOTINE 14 MG/24 HR PATCH TD SCH (17:16)
--- NOTE | 2022-01-31 17:19 | Discharge Summary ---
Date of Service January 31, 2022 Admission HPI Per Admitting Provider 21 year old male with h/o tobacco abuse, alcohol abuse, cannabis abuse presented to the ED with intractable nausea, vomiting and epigastric pain. Started 3 days ago after eating hot spicy food and came to the ED on 01/26. After evaluation, thought to have gastritis and sent home on pepcid but came back yesterday with persistent symptoms. He was discharged home after symptomatic treatment in ED but came back today with persistent symptoms. He has GI appointment tomorrow but could not wait for it because of the ongoing symptoms and came to the ED. In the ED, he was given NSS, reglan, benadryl, ativan, capsaicin and was quite comfortable during my encounter. States he has burning pain in epigastrium and retrosternal area. Whenever he tries to eat or drink something, it hurts more and he throws up. Symptoms are better if he is not eating or drinking anything. States his last meal was probably 4 days ago. No fever, chills, weight loss, hematemesis, hematochezia. He smokes half pack a day and was drinking lots of beer from 01/16-01/22. Also uses medical marijuana daily, last was about a week ago. Uses advil intermittently for his foot pain, last one was 4 tabs of OTC advil 4 days ago. Denies any other medical conditions. Admission Exam Per Admitting Provider General: Lying comfortably in bed, not in distress, on room air HEENT: EOMI, TEE, MMM Chest: Clear breath sounds bilaterally, no wheezes or crackles CVS: Regular rate and rhythm, normal heart sounds, no murmur Abdomen: Soft, epigastric tenderness, not distended, normal bowel sounds Neuro: Awake, alert, oriented, conversing well, non focal Extremities: No cyanosis, clubbing or edema Principal Diagnosis Nausea & vomiting: Epigastric pain: Marijuana abuse Tobacco abuse Discharge Data Allergies Allergy/AdvReac Type Severity Reaction Status Date / Time No Known Allergies Allergy Verified 01/29/22 14:04 Consultations 01/29/22 12:57 ED Decision to Admit Stat 01/29/22 13:43 Consult Gastroenterology Routine Procedures Performed Operation Date: 01/30/22 17:45 <No data on this case meets the specified criteria> Operation Date: 02/02/22 17:00 <No data on this case meets the specified criteria> Ordered Studies SINGLE VIEW CHEST CLINICAL HISTORY: Atypical chest pain. Nausea and vomiting. FINDINGS: 2 AP, portable, upright chest radiographs are obtained. No prior studies are available for comparison at the time of dictation. The cardiomediastinal silhouette is unremarkable. An accessory azygous fissure is incidentally noted. The lungs and pleural spaces are clear. No pneumothorax is seen. The bony thorax is grossly intact. IMPRESSION: No active disease in the chest. ACT 112: Negative or not required by law. Electronically signed by: Guillermo Kinney M.D. 01/29/2022 12:12 PM Dictated:01/29/22 121 Transcribed: 01/29/22 121 Hospital Course (1) GERD with esophagitis: (2) Nausea & vomiting: (3) Epigastric pain: Plan This is a 21 year old male with h/o tobacco abuse, alcohol abuse, cannabis abuse presented to the ED with intractable N/V/epigastric pain ongoing for the past 3 days. This is is third visit to ED in the past 3 days. RUQ US 01/26- 1. Distended gallbladder containing biliary sludge. 2. No shadowing gallstones are identified and there is no sonographic evidence of acute cholecystitis. CT A/P 01/28 1. Mild circumferential thickening of distal esophagus. This suggests a mild esophagitis. 2. No evidence for bowel obstruction. 3. Normal appendix. 4. No hydronephrosis. Nausea Vomiting Epigastric pain Likely from GERD with esophagitis/gastritis, likely contributed by his tobacco, alcohol abuse and NSAIDs. No hematemesis, melena, fever, chills. Labs including CBC, BMP, LFT, lipase unremarkable CT A/P with mild esophagitis. RUQ US reviewed as above. Patient was discharged on Pepcid but continues to have intractable symptoms and could not wait for GI appointment and came to the ED Continue protonix bid, iv zofran and phenergan prn, NSS Counseled on cessation of tobacco, alcohol, cannabis and NSAIDs Evaluated by GI this morning. Expect underlying cause of intractable nausea vomiting is cannabis hyperemesis Could benefit from endoscopic evaluation either as an inpatient on Wednesday or an outpatient in the next few weeks if patient improves Diet advanced, continue antiemetics, monitor overnight DVT ppx- SCDs, early ambulation Full code Dispo- Observation to med/surg Total Time Total Time Spent Total Time Spent (In Minutes): 35 minutes Discharge Plan Discharge Items Patient Disposition: Home - Self-Care Reason For Visit: N/V/EPIGASTRIC PAIN Discharge Diagnosis: Nausea & vomiting: Epigastric pain: Marijuana abuse Tobacco abuse Activity: Resume your previous activity Non-emergency contact: Primary Care Provider and Certified Diabetes Educator Call non-emergency contact if: you have any medication questions and your symptoms worsen Follow-up/Referrals: PCP,NO [Primary Care Provider] - Diet: Low Fiber Addtl Attending Provider Instructions: Follow up with your primary care provider in 1 week (please call to schedule for the follow up appointment ) Follow up with gastroenterology to arrange for outpatient EGD Counseled on cessation of tobacco, alcohol, cannabis abuse Seek medical attention if nausea and vomiting reoccur Pending Studies at Discharge: No Stand-Alone Forms: My [employer], Smoking Cessation Medications and DC Order Prescriptions: Continued famotidine [Pepcid] 20 mg tablet 20 mg PO BID 10 Days Qty: 20 0RF Discharge Orders: Discharge Order (Routine); Ordered 01/31/22 Ordered By: Ravinder Mcintosh Admission Data Admit Date/Time: 01/29/22 13:43 Attending Provider: Ravinder Mcintosh Admit Provider: Jason Greenfield Primary Care Provider: PCP,NO Other Providers: Arelis Simmons ; Jason Greenfield ; Namrata Malcolm Other Interventions: Discharge Summary Assessment (RN) Last Done: 01/31/22 17:28
[2022-02-02 08:31] LABS: Codeine Urine NEGATIVE ng/mL (<50); Hydrocodone Urine NEGATIVE ng/mL (<50); Hydromor Urine NEGATIVE ng/mL (<50); Marijuana Quant, GCMS Urine 1155 ng/mL (<5); Morphine Urine 525 ng/mL (<50); Norhydrocodone Conf Ur NEGATIVE ng/mL (<50); Noroxycodone Urine NEGATIVE ng/mL (<50); Oxycodone Urine NEGATIVE ng/mL (<50); Oxymorph Urine NEGATIVE ng/mL (<50)
== END 2022-01-31 18:00 | disposition home or self-care (01) ==
LOC: ED 11:11 → EDINP 11:11 → SUATTDRO 13:43 → 3E 17:33

== ENCOUNTER 2022-04-27 11:20 | Observation (INO) ==
[2022-04-27] MEDS ORDERED: PROMETHAZINE 25 MG/51 ML BAG IV STA (11:51)
--- NOTE | 2022-04-27 11:55 | Emergency Department Note ---
Impression & Plan Hematemesis, Arleen-Rivero syndrome, Vomiting ED Provider Note NAME: ANUP WEBBER AGE: 21 SEX: M : 2000 ARRIVES VIA: Walk-In INFORMANT: Patient ED PROVIDER(S): Paxton Holly DO CHIEF COMPLAINT: abdominal pain HPI: Patient is a 21-year-old male who presents to ER for abdominal pain and vomiting blood. Symptoms started Wednesday with nausea and vomiting. He notes pain is located in the epigastric region. Last bowel movement was yesterday. He notes it was a little darker. He was seen evaluated here several times and admitted and tried to get an upper endoscopy but he vomited. He denies any dysuria, urgency, or frequency. 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 He notes he smokes marijuana about twice a month. No other exacerbating or remitting factors. Since Wednesday he has been vomiting blood. In the vomit there is streaks of blood. ROS: See above HPI for pertinent positives & negatives. A total of 10 systems reviewed and were otherwise negative. PAST MEDICAL HISTORY:See Below PAST SURGICAL HISTORY:See Below FAMILY HISTORY:See Below SOCIAL HISTORY:See Below HOME MEDICATIONS:See Below ALLERGIES:See Below VITALS:See Below PHYSICAL EXAMINATION: GENERAL: Sitting up in bed, alert, disheveled, mild distress EYE EXAM: normal conjunctiva. OROPHARYNX:mucous membranes are dry LUNGS: Clear to auscultation. Normal chest wall mechanics HEART: no murmurs, S1 normal and S2 normal ABDOMEN: abdomen soft, non-tender, normo-active bowel sounds, no masses, no rebound or guarding. RECTAL: hem neg UPPER EXTREMITIES: upper extremities are grossly normal. LOWER EXTREMITIES: No pitting edema. NEURO EXAM: Normal sensorium, cranial nerves II-XII grossly intact, normal speech, no gross weakness of arms, no gross weakness of legs. MEDICAL DECISION MAKING: Patient is a 19-year-old male who presents ER for above-stated complaint. IV was established blood work was obtained. Labs show a leukocytosis of 14,000. Hemoglobin at 19 which I favor secondary to dehydration. INR unremarkable. BMP with mild hypokalemia at 3.1. LFTs and T bili were unremarkable. Troponin was negative. COVID-negative. CT abdomen pelvis shows gastritis. Patient was given multiple doses of Phenergan, Reglan, Zofran, as well as IV fluids. He still continued to vomit blood. Rectal heme negative. BUN was not signif icantly elevated. Discussed with the hospitalist and patient was admitted for further observation with the persistent vomiting and hematemesis. Triage Nursing notes reviewed. Limited review of prior medical records performed Vital Signs: reviewed and remarkable for HTN and tachypneic Differential diagnosis: Differential diagnoses includes but is not limited to gastritis, peptic ulcer disease, GERD, gallbladder disease, pancreatitis, small bowel obstruction, acute coronary syndrome, pericarditis, ischemic bowel, irritable bowel disease, irri table bowel syndrome, appendicitis, diverticulitis, malignancy, hernia, urinary tract infection, torsion, perforation, trauma, infectious. ER treatment provided: See below Diagnostics interpreted by me: ECG: none Cardiac Monitoring: An order was placed for continuous cardiac monitoring. The monitor shows a rate of 70 with sinus rhythm. Laboratory studies: As stated above and show below. Imaging studies: CT and pelvis as described above Consultation(s): Discussed with hospitalist for further evaluation from [facility] Procedures: none Critical Care: None Past Med/Surg History Medical History (Updated 04/27/22 @ 16:21 by Paxton Holly DO) No pertinent family history No pertinent past medical history Surgical History No pertinent past surgical history Social History Smoking Status: Current every day smoker Tobacco Type: Cigarettes Cigarettes Per Day: 20; Second Hand Exposure: No; Hx Alcohol Use: Yes Alcohol type: beer Hx Substance Use: Yes Prescribed Medications: Marijuana Last Used Substance: Days (ago) Preferred Language: Syriac Communication Ability: Effective 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 Beliefs That Will Affect Care: None Current Living Situation: Parent Feels Safe at Home: Yes Assistive Devices: None Allergies Allergies Allergy/AdvReac Type Severity Reaction Status Date / Time No Known Allergies Allergy Verified 04/27/22 15:45 Home Meds Home Medications Medication Instructions Recorded Confirmed No Known Home Medications 04/27/22 04/27/22 Results & Data (ED) Vital Signs Vital Signs - 24 hr 04/27/22 11:28 04/27/22 11:42 04/27/22 11:55 Temperature 36.7 C Temperature Source Oral Pulse Rate 82 80 Pulse Rate [Apical] 85 Pulse Rhythm Regular Regular Pulse Rhythm [Apical] Regular Pulse Strength Normal Pulse Strength [Apical] Normal Respiratory Rate 28 H 28 H 28 H Respiratory Effort / Characteristics Non-Labored Spontaneous Non-Labored Spontaneous Respiratory Depth Normal Respiratory Pattern Regular Regular Blood Pressure 103/78 Blood Pressure [Left Arm] 158/91 H Blood Pressure Mean 86 Blood Pressure Mean [Left Arm] 113 Blood Pressure Position Sitting Blood Pressure Position [Left Arm] Semi-fowlers Pulse Oximetry 99 100 100 Oxygen Delivery Method Room Air Room Air Room Air Sepsis Recent Fever Within 48 Hours No Sepsis New/Unexplained Change in Mental Status No Sepsis Action Taken by Nursing No Action Required 04/27/22 13:00 04/27/22 15:00 Temperature Temperature Source Pulse Rate Pulse Rate [Apical] 83 65 Pulse Rhythm Pulse Rhythm [Apical] Regular Regular Pulse Strength Pulse Strength [Apical] Normal Normal Respiratory Rate 18 20 Respiratory Effort / Characteristics Non-Labored Non-Labored Respiratory Depth Normal Respiratory Pattern Regular Regular Blood Pressure Blood Pressure [Left Arm] 138/96 116/71 Blood Pressure Mean Blood Pressure Mean [Left Arm] 110 86 Blood Pressure Position Blood Pressure Position [Left Arm] Lying Pulse Oximetry 97 96 Oxygen Delivery Method Room Air Room Air Sepsis Recent Fever Within 48 Hours Sepsis New/Unexplained Change in Mental Status Sepsis Action Taken by Nursing Laboratory Data Result diagrams: 04/27/22 11:42 04/27/22 11:42 Lab Results 04/27/22 04/27/22 04/27/22 Range/Units 11:42 11:42 11:42 WBC 14.68 H (4.8-10.8) K/ul RBC 5.77 (4.63-6.08) M/uL Hgb 19.4 H (14.0-18.0) g/dl POC Hgb (14.0-18.0) g/dl Hct 51.2 H (40.1-51.0) % POC Hct (42-52) % MCV 88.7 (80.0-100.0) fL MCH 33.6 (25.0-34.0) pg MCHC 37.9 H (32.0-36.0) g/dL RDW Std Deviation 37.9 (36.4-46.3) fL RDW Coeff of [place] 11.8 (11.5-14.5) % Plt Count 268 (130-400) K/uL MPV 10.3 (9.4-12.4) fL Immature Gran % (Auto) 0.4 % Neut % (Auto) 76.2 % Lymph % (Auto) 14.3 % [place] % (Auto) 8.2 % Eos % (Auto) 0.6 % Baso % (Auto) 0.3 % Neut # (Auto) 11.18 H (1.4-6.5) K/uL Lymph # (Auto) 2.10 (1.2-3.4) K/uL [place] # (Auto) 1.20 H (0.24-0.82) K/uL Eos # (Auto) 0.09 (0-0.50) K/uL Baso # (Auto) 0.05 (0-0.2) K/uL Immature Gran # (Auto) 0.06 H (0.00-0.02) K/uL PT 10.2 (9.0-12.0) Seconds INR 1.0 (0.9-1.1) APTT 26.8 (21.0-31.0) Seconds PTT Ratio 1.0 POC Sodium (135-144) mmol/L Sodium 139 (136-145) mmol/L POC Potassium (3.3-5.0) mmol/L Potassium 3.1 L (3.5-5.1) mmol/L POC Chloride (101-112) mmol/L Chloride 102 (98-107) mmol/L Carbon Dioxide 22 (21-32) mmol/L POC Total CO2 (24-31) mmol/L Anion Gap 15 H (3-11) POC Anion Gap (16-25) mmol/L POC BUN (7-18) mg/dl BUN 22 (6-23) mg/dl Creatinine 1.11 (0.6-1.4) mg/dl POC Creatinine (0.6-1.3) mg/dl Est Cr Clr Drug Dosing 133.3 ml/min Est GFR ( Amer) 108.7 ml/min Est GFR (Non-Af Amer) 93.8 ml/min BUN/Creatinine Ratio 19.8 (10-20) Glucose 125 H (70-99(Fasting)) mg/dl POC Glucose (other) (70-99) mg/dl Calcium 10.2 H (8.5-10.1) mg/dl POC Ioniz Calcium Ave (1.12-1.32) mmol/l Magnesium (1.7-2.4) mg/dl Total Bilirubin 1.6 H (0.2-1.0) mg/dl AST 23 (13-39) U/L ALT 27 (7-52) U/L Alkaline Phosphatase 79 (34-104) U/L Troponin I High Sens 5.3 (0-20) pg/ml Total Protein 8.1 (6.0-8.3) gm/dl Albumin 5.2 H (3.4-5.0) gm/dl Globulin 2.9 (2.5-4.0) gm/dl Albumin/Globulin Ratio 1.8 (0.9-2) SARS-CoV-2, RNA, NAAT (NEGATIVE) 04/27/22 04/27/22 04/27/22 Range/Units 11:42 11:50 15:28 WBC (4.8-10.8) K/ul RBC (4.63-6.08) M/uL Hgb (14.0-18.0) g/dl POC Hgb 18.7 H (14.0-18.0) g/dl Hct (40.1-51.0) % POC Hct 55 H (42-52) % MCV (80.0-100.0) fL MCH (25.0-34.0) pg MCHC (32.0-36.0) g/dL RDW Std Deviation (36.4-46.3) fL RDW Coeff of [place] (11.5-14.5) % Plt Count (130-400) K/uL MPV (9.4-12.4) fL Immature Gran % (Auto) % Neut % (Auto) % Lymph % (Auto) % [place] % (Auto) % Eos % (Auto) % Baso % (Auto) % Neut # (Auto) (1.4-6.5) K/uL Lymph # (Auto) (1.2-3.4) K/uL [place] # (Auto) (0.24-0.82) K/uL Eos # (Auto) (0-0.50) K/uL Baso # (Auto) (0-0.2) K/uL Immature Gran # (Auto) (0.00-0.02) K/uL PT (9.0-12.0) Seconds INR (0.9-1.1) APTT (21.0-31.0) Seconds PTT Ratio POC Sodium 141 (135-144) mmol/L Sodium (136-145) mmol/L POC Potassium 2.9 L (3.3-5.0) mmol/L Potassium (3.5-5.1) mmol/L POC Chloride 103 (101-112) mmol/L Chloride (98-107) mmol/L Carbon Dioxide (21-32) mmol/L POC Total CO2 21 L (24-31) mmol/L Anion Gap (3-11) POC Anion Gap 21.0 (16-25) mmol/L POC BUN 22 H (7-18) mg/dl BUN (6-23) mg/dl Creatinine (0.6-1.4) mg/dl POC Creatinine 1.1 (0.6-1.3) mg/dl Est Cr Clr Drug Dosing ml/min Est GFR ( Amer) ml/min Est GFR (Non-Af Amer) ml/min BUN/Creatinine Ratio (10-20) Glucose (70-99(Fasting)) mg/dl POC Glucose (other) 126 H (70-99) mg/dl Calcium (8.5-10.1) mg/dl POC Ioniz Calcium Ave 1.12 (1.12-1.32) mmol/l Magnesium 1.9 (1.7-2.4) mg/dl Total Bilirubin (0.2-1.0) mg/dl AST (13-39) U/L ALT (7-52) U/L Alkaline Phosphatase (34-104) U/L Troponin I High Sens (0-20) pg/ml Total Protein (6.0-8.3) gm/dl Albumin (3.4-5.0) gm/dl Globulin (2.5-4.0) gm/dl Albumin/Globulin Ratio (0.9-2) SARS-CoV-2, RNA, NAAT NEGATIVE (NEGATIVE) Administered Medications Pantoprazole Sodium 40 mg/ (Dextrose) 100 mls @ 20 mls/hr IV Q5H HUMBLE Stop: 05/27/22 14:59 Last Admin: 04/27/22 15:19 Dose: 8 mg/hr, 20 mls/hr Documented By: AP Potassium Chloride (K Gary / Wtr) 10 meq in 100 mls @ 100 mls/hr IV Q1H HUMBLE Stop: 04/27/22 18:44 Last Admin: 04/27/22 15:20 Dose: 100 mls/hr Documented By: AP Discontinued Medications Promethazine HCl (Phenergan) 25 mg in 51 mls @ 204 mls/hr IV NOW STA Stop: 04/27/22 12:05 Last Infusion: 04/27/22 12:16 Dose: 0 mls/hr Documented By: Admin: 04/27/22 12:00 Dose: 204 mls/hr Documented By: AP Pantoprazole Sodium 40 mg/ (Syringe) 10 mls @ 5 mls/min IV NOW ONE Stop: 04/27/22 13:17 Last Admin: 04/27/22 13:36 Dose: 5 mls/min Documented By: KT Sodium Chloride (Nss 1000ml) 1,000 mls @ 999 mls/hr IV .Q1H1M HUMBLE Stop: 04/27/22 15:41 Last Admin: 04/27/22 15:20 Dose: 999 mls/hr Documented By: GLENYS Pantoprazole Sodium 80 mg/ (Dextrose) 120 mls @ 400 mls/hr IV NOW ONE Stop: 04/27/22 15:07 Last Admin: 04/27/22 15:10 Dose: Not Given Documented By: GLENYS Pantoprazole Sodium 40 mg/ (Syringe) 10 mls @ 5 mls/min IV NOW ONE Stop: 04/27/22 15:01 Last Admin: 04/27/22 15:28 Dose: Not Given Documented By: GLENYS Ioversol (Ioversol 350 Mg 100ml Prefilled Syringe) 94 ml IV ONCE ONE Stop: 04/27/22 12:33 Last Admin: 04/27/22 12:26 Dose: 94 ml Documented By: BRM Metoclopramide HCl (Metoclopramide Hcl Inj 5 Mg/Ml 2 Ml Vial) 10 mg IV ONE ONE Stop: 04/27/22 13:48 Last Admin: 04/27/22 14:29 Dose: 10 mg Documented By: GLENYS Morphine Sulfate (Morphine Sulfate 4 Mg/Ml 1 Ml Carp\Vial) 4 mg IV NOW STA Stop: 04/27/22 14:48 Last Admin: 04/27/22 15:19 Dose: 4 mg Documented By: GLENYS Ondansetron HCl (Ondansetron Inj 2 Mg/Ml 2 Ml Vial) 4 mg IV NOW STA Stop: 04/27/22 14:12 Last Admin: 04/27/22 14:29 Dose: 4 mg Documented By: GLENYS Imaging Data Radiologist's Impression: Abdomen/Pelvis CT 04/27/22 11:[address] WITH IV CONTRAST CT DOSE: 588.14 mGy.cm HISTORY: Acute generalized abdominal pain with nausea and vomiting vomiting blood TECHNIQUE: Multiaxial CT images of the abdomen and pelvis were performed following the IV administration of 94 cc of Optiray, A dose lowering technique was utilized adhering to the principles of ALARA. COMPARISON STUDY: CT abdomen and pelvis 01/28/2022 FINDINGS: The imaged inferior cardiac chambers are unremarkable. The spleen is enlarged measuring up to 13.9 cm in length. Unremarkable pancreas, gallbladder and adrenal glands. Hepatic steatosis. Patency of the hepatic and portal veins. Unremarkable kidneys. No renal or ureteral calculi or hydronephrosis. Partial distention of the urinary bladder with mild wall thickening. Unremarkable prostate. Aorta and IVC are unremarkable. No lymphadenopathy. Circumferential wall thickening of the distal esophagus, similar to prior. Subcentimeter gastrohepatic lymph nodes. There is no bowel obstruction or bowel wall thickening. Colonic diverticulosis. Moderate fecal retention of the right hemicolon. Normal appendix. Stool-filled loops of small bowel within the abdominal right lower quadrant. Unremarkable soft tissues. No acute fracture. Cortical thickening of the right iliac crest may represent a healed chronic frac ture. IMPRESSION: 1. No bowel obstruction or bowel wall thickening. Normal appendix. 2. Wall thickening of the distal esophagus redemonstrated suggestive of esophagitis. ACT 112: Negative or not required by law. The above report was generated using voice recognition software. It may contain grammatical, syntax or spelling errors. Electronically signed by: Jay Castaneda M.D. 04/27/2022 1:02 PM Discharge Plan Visit Data Chief Complaint: GI Assessment Stated Complaint: VOMITTING W/ BLOOD, ABD PAIN ED Provider: Paxton Holly Discharge Problem: Hematemesis, Arleen-Rivero syndrome, Vomiting Forms Stand Alone Forms: [employer] Prescriptions Prescriptions: No Action No Known Home Medications Referrals Referrals: PCP,NO [Primary Care Provider] -
[2022-04-27 12:03] LABS: iSTAT Creatinine 1.1 mg/dl (0.6-1.3); iSTAT Hemoglobin 18.7 g/dl (14.0-18.0); iSTAT Ionized Calcium 1.12 mmol/l (1.12-1.32); iSTAT Potassium 2.9 mmol/L (3.3-5.0)
[2022-04-27 12:07] LABS: Basophils # (auto) 0.05 K/uL (0-0.2); Basophils % (auto) 0.3 %; Eosinophils # (auto) 0.09 K/uL (0-0.50); Eosinophils % (auto) 0.6 %; Hematocrit (blood only) 51.2 % (40.1-51.0); Hemoglobin 19.4 g/dl (14.0-18.0); Immature Granulocytes # (auto) 0.06 K/uL (0.00-0.02); Immature Granulocytes % (auto) 0.4 %; Lymphocytes % (auto) 14.3 %; Mean Corpuscular Hemoglobin 33.6 pg (25.0-34.0); Mean Corpuscular Hgb Conc 37.9 g/dL (32.0-36.0); Mean Corpuscular Volume 88.7 fL (80.0-100.0); Mean Platelet Volume 10.3 fL (9.4-12.4); Monocytes % (auto) 8.2 %; Neutrophils # (auto) 11.18 K/uL (1.4-6.5); Neutrophils % (auto) 76.2 %; Platelet Count 268 K/uL (130-400); RDW Coefficient of Variation 11.8 % (11.5-14.5); RDW Standard Deviation 37.9 fL (36.4-46.3); Red Blood Count 5.77 M/uL (4.63-6.08); White Blood Count 14.68 K/ul (4.8-10.8)
[2022-04-27 12:20] LABS: Partial Thromboplastin Time 26.8 Seconds (21.0-31.0); Prothrombin Time 10.2 Seconds (9.0-12.0)
[2022-04-27 12:29] LABS: Albumin Globulin Ratio 1.8 (0.9-2); Albumin Level 5.2 gm/dl (3.4-5.0); BUN Creatinine Ratio 19.8 (10-20); Bilirubin,Total 1.6 mg/dl (0.2-1.0); Calcium 10.2 mg/dl (8.5-10.1); Creatinine Clr Calc Pharmacy 133.3 ml/min; Est GFR (African American) 108.7 ml/min; Est GFR (Non-African American) 93.8 ml/min; Globulin 2.9 gm/dl (2.5-4.0); Potassium 3.1 mmol/L (3.5-5.1); Total Protein 8.1 gm/dl (6.0-8.3)
[2022-04-27 12:32] LABS: Troponin I High Sensitivity 5.3 pg/ml (0-20)
[2022-04-27] MEDS ORDERED: IOVERSOL 350 MG 100mL Prefilled Syringe IV ONE (12:32)
--- NOTE | 2022-04-27 13:03 | CT Scan Report ---
ABDOMEN AND PELVIS CT WITH IV CONTRAST CT DOSE: 588.14 mGy.cm HISTORY: Acute generalized abdominal pain with nausea and vomiting vomiting blood TECHNIQUE: Multiaxial CT images of the abdomen and pelvis were performed following the IV administrat ion of 94 cc of Optiray, A dose lowering technique was utilized adhering to the principles of ALARA. COMPARISON STUDY: CT abdomen and pelvis 01/28/2022 FINDINGS: The imaged inferior cardiac chambers are unremarkable. The spleen is enlarged measuring up to 13.9 cm in length. Unremarkable pancreas, gallbladder and adrenal glands. Hepatic steatosis. Paten cy of the hepatic and portal veins. Unremarkable kidneys. No renal or ureteral calculi or hydronephro sis. Partial distention of the urinary bladder with mild wall thickening. Unremarkable prostate. Aort a and IVC are unremarkable. No lymphadenopathy. Circumferential wall thickening of the distal esophagus, similar to prior. Subcentimeter gastrohepati c lymph nodes. There is no bowel obstruction or bowel wall thickening. Colonic diverticulosis. Modera te fecal retention of the right hemicolon. Normal appendix. Stool-filled loops of small bowel within the abdominal right lower quadrant. Unremarkable soft tissues. No acute fracture. Cortical thickening of the right iliac crest may represent a healed chronic fracture. IMPRESSION: 1. No bowel obstruction or bowel wall thickening. Normal appendix. 2. Wall thickening of the distal esophagus redemonstrated suggestive of esophagitis. ACT 112: Negative or not required by law. The above report was generated using voice recognition software. It may contain grammatical, syntax o r spelling errors. Electronically signed by: Jay Castaneda M.D. 04/27/2022 1:02 PM
[2022-04-27] MEDS ORDERED: PANTOprazole 40 MG in SYRINGE 0 ML IV ONE ×2 (13:16→15:00)
[2022-04-27] MEDS ORDERED: METOCLOPRAMIDE HCL INJ 5 MG/ML 2 ML VIAL IV ONE (13:47)
[2022-04-27] MEDS ORDERED: ONDANSETRON INJ 2 MG/ML 2 ML VIAL IV STA (14:11)
[2022-04-27] MEDS ORDERED: SODIUM CHLORIDE 0.9% 1000ML 1,000 ML IV SCH (14:41)
[2022-04-27] MEDS ORDERED: PANTOPRAZOLE BOLUS/DRIP 1 EACH IV STA (14:41)
[2022-04-27] MEDS ORDERED: MoRPHine SULFATE 4 MG/ML 1 ML CARP\\VIAL IV STA (14:47)
[2022-04-27] MEDS ORDERED: PANTOprazole 80 MG in DEXTROSE 5% 100 ML IV ONE (14:50)
[2022-04-27] MEDS: PANTOprazole 40 MG in DEXTROSE 5% 100 ML IV SCH ×2 (15:19→19:58)
[2022-04-27] MEDS: POTASSIUM CHLORIDE / WTR 10 MEQ/100 ML PLCT IV SCH ×4 (15:20→19:23)
--- NOTE | 2022-04-27 15:53 | Gastrointestinal Consultation ---
Date of Consultation April 27, 2022 Assessment & Plan (1) Hematemesis: Question Arleen Rivero tear or severe esophagitis which is more likely to be from the vomiting than from reflux esophagitis. St (2) GERD (gastroesophageal reflux disease): He describes reflux symptoms for about 4 yrs. Will check for esophagitis on EGD. Should be maintained on a PPI after DC. Plan 1. Appreciate primary hospitalists correction of hypokalemia. 2. Protonix drip. 3. NPO 4. Antiemetics 5. Recommend complete abstention from marijuana. 6. EGD tomorrow. Further recommendations to follow. Supervising Physician Co-Signing Physician Notes I performed a history and physical examination of the patient today, including specifically on physical exam - soft abdomen. I have discussed the patient's management with the advanced practitioner. Please refer to the nurse practitioner's note for the documented findings and plan of care. IV PPI. EGD tomorrow. History of Present Illness Reason for Consultation: Hematemesis Requesting Physician: Orquidea Rogers NP Attending Physician: Julianne magdaleno History of Present Illness Mr. Florencio Schafer is a 21 yr old male pt not established w a PCP. Mr. Schafer has episodes of nausea/vomiting, most recently starting on this past Wednesday, Apr 25. He was awakened from sleep by intense burning epigastric pain w nausea that day, soon followed by vomiting. These symptoms persisted through the weekend and today. He has been unable to retain any liquids or foods since that morning, vomiting back up soon after swallowing. On Sat evening, he began having bright red blood in the emesis - intermittently. He estimates that he has vomited about 20 times and about 8 of those times has had blood in the emesis. He also has a long hx of reflux, feeling burning chest pain first noticed around age 17. He Smokes marijuana "occasionally. " He has been seen by GI in the ED during a prior visit for N/V and OP EGD was recommended but he has not followed up. He is a smoker. Not aware of any family hx of GI cancers. On arrival Hb is 19, BUN. He has two bags with bloody liquid emesis at that bedside, about 100cc each. He works at [email or web address] in [place]. Allergies Allergy/AdvReac Type Severity Reaction Status Date / Time No Known Allergies Allergy Verified 04/27/22 15:45 Home Medications Medication Instructions Recorded Confirmed Type No Known Home Medications 04/27/22 04/27/22 History Patient History Medical History No pertinent family history No pertinent past medical history Surgical History No pertinent past surgical history Social History Smoking Status: Current every day smoker Tobacco Type: Cigarettes Cigarettes Per Day: 20; Second Hand Exposure: No; Hx Alcohol Use: Yes Alcohol type: beer Hx Substance Use: Yes Prescribed Medications: Marijuana Last Used Substance: Days (ago) Preferred Language: Mongolian Communication Ability: Effective 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 No palpitations/irregular beats. GI: As per HPI, otherwise (-). : Denies pain on urination Skin: No jaundice, itching or new rashes A total of 12 systems were reviewed, all others (-) Physical Exam Constitutional: WD/WN, vitals as above Eyes: PERRL, conjunctivae normal, anicteric sclerae ENMT: external ear and nose normal, oropharynx normal Neck: trachea midline, no thyromegaly Respiratory: normal respiratory effort, lungs clear to auscultation Cardiovascular: RRR, no murmur, no edema Gastrointestinal (Abdomen): Inspection/Auscultation: abdomen normal to inspection and + hypoactive bowel sounds; abdomen not distended Percussion/Palpation: + abdomen tender (epigastric tenderness on palpation; non tender elsewhere) Skin: no rashes, warm and dry Neurologic: PERRL, EOMI, accommodation nl, no face palsy, no dysarthria Psychiatric: A+Ox3, euthymic affect Lymphatic: no cervical or axillary lymphadenopathy Results & Data ([facility]) Vital Signs (Past 12 Hours) Vital Signs Temp Pulse Pulse Resp BP BP Pulse Ox 04/27/22 13:00 83 18 138/96 97 04/27/22 11:55 80 28 H 100 04/27/22 11:42 85 28 H 158/91 H 100 04/27/22 11:28 36.7 C 82 28 H 103/78 99 O2 Del Method 04/27/22 13:00 Room Air 04/27/22 11:55 Room Air 04/27/22 11:42 Room Air 04/27/22 11:28 Room Air Laboratory Results WBC 14, Hb 19, Hct 51, Pts 268 Na 141, K 2.9, Cl 103, Co2 22, BUN 22, Cr 1.1, glucose 126 T Bili 1.6, AST 23, ALT 26, Alk Phos 79 Diagnostic Findings EGD 04/27/22: 1. No bowel obstruction or bowel wall thickening. Normal appendix. 2. Wall thickening of the distal esophagus redemonstrated suggestive of esophagitis.
--- NOTE | 2022-04-27 15:54 | Electrocardiogram Report ---
Test Reason : Blood Pressure : / mmHG Vent. Rate : 070 BPM Atrial Rate : 070 BPM P-R Int : 156 ms QRS Dur : 114 ms QT Int : 414 ms P-R-T Axes : 054 062 067 degrees QTc Int : 447 ms Normal sinus rhythm with sinus arrhythmia Normal ECG When compared with ECG of 29-JAN-2022 18:35, QT has shortened Confirmed by Jamshid Hickey ([id number]) on 04/27/2022 3:54:52 PM Referred By: Confirmed By:Jamshid Hickey
--- NOTE | 2022-04-27 16:24 | History & Physical Report ---
Date of Service April 27, 2022 Assessment & Plan (1) Hematemesis: Plan: Admit to [facility] Patient presenting from home with reports of intractable nausea and vomiting x 3 days. Admitted for similar symptoms about 3 months ago which was attributed to cannabis hyperemesis. Patient referred for outpatient EGD however never followed up. Patient reports "occasional" use of marijuana. During exam patient asking to take a hot shower for symptom relief. CT abd/pelvis showing Wall thickening of the distal esophagus redemonstrated suggestive of esophagitis ? Arleen Rivero tear vs. PUD vs. esophagitis/gastritis Hgb 19.5 - likely heme concentration from dehydration PPI bolus and drip IVF, PRN zofran Capsaicin cream for suspected canabis hyperemesis Serial H/H NPO GI consult, case discussed with AMANDA Swift (2) Hypokalemia: Plan: K+ 3.1, Mg+ 1.9 Replace, follow electrolytes (3) DVT prophylaxis: Plan: SCDs due to upper GI bleeding History of Present Illness Chief Complaint: Nausea and vomiting Primary Care Provider: NO PCP 21-year-old male without significant past medical history who presents the ED for evaluation of nausea and vomiting. Patient reports symptoms began 3 days ago. He reports multiple episodes of vomiting and developed hematemesis yesterday. Patient describes a moderate amount of blood with vomiting. States that he has been unable to keep down food or liquids. He reports that he has not urinated or had a bowel movement in 2 days. Patient was admitted for similar symptoms 3 months ago, intractable nausea and vomiting was attributed to cannabis hyperemesis. Patient was referred for outpatient EGD however never followed up.Patient reports smoking marijuana occasionally, last use was 2 weeks ago. Reports weekly intake of alcohol, last use about 3 days ago. He is a daily cigarette smoker.Patient currently describing epigastric discomfort and chest burning consistent with heartburn. Patient denies fevers and chills. No chest pain or palpitations. Denies lightheadedness, dizziness, diaphoresis, syncopal events. In the ED, CT ABD/pelvis shows Wall thickening of the distal esophagus redemonstrated suggestive of esophagitis. Patient was given IV Reglan, IV morphine, IV Zofran, IV Phenergan, IV Protonix 40 mg. Labs show WBC 14 K, Hgb 19.4, BUN 22, K+ 3.1. Allergies Allergy/AdvReac Type Severity Reaction Status Date / Time No Known Allergies Allergy Verified 04/27/22 15:45 Home Medications Medication Instructions Recorded Confirmed Type No Known Home Medications 04/27/22 04/27/22 History Past Med/Surg History Medical History No pertinent family history No pertinent past medical history Surgical History No pertinent past surgical history Family History Other No pertinent family history Social History Smoking Status: Current every day smoker Tobacco Type: Cigarettes Cigarettes Per Day: 20; Second Hand Exposure: No; Hx Alcohol Use: Yes Alcohol type: beer Hx Substance Use: Yes Prescribed Medications: Marijuana Last Used Substance: Days (ago) Preferred Language: Kazakh Communication Ability: Effective Industrial Organization Manager Required: No Beliefs That Will Affect Care: None Current Living Situation: Parent Feels Safe at Home: Yes Assistive Devices: None Review of Systems Review of Systems: ROS per HPI, all other systems reviewed and negative Physical Exam Physical Exam: please refer to Dr. Bernard's addendum for physical exam Results & Data Results & Data ([facility]) Vital Signs (Past 12 Hours) Vital Signs Temp Pulse Pulse Resp BP BP Pulse Ox 04/27/22 15:00 65 20 116/71 96 04/27/22 13:00 83 18 138/96 97 04/27/22 11:55 80 28 H 100 04/27/22 11:42 85 28 H 158/91 H 100 04/27/22 11:28 36.7 C 82 28 H 103/78 99 O2 Del Method 04/27/22 15:00 Room Air 04/27/22 13:00 Room Air 04/27/22 11:55 Room Air 04/27/22 11:42 Room Air 04/27/22 11:28 Room Air Laboratory Results Short CBC 04/27/22 Range/Units 11:42 WBC 14.68 H (4.8-10.8) K/ul Hgb 19.4 H (14.0-18.0) g/dl Hct 51.2 H (40.1-51.0) % Plt Count 268 (130-400) K/uL BMP 04/27/22 11:42 Sodium 139 Potassium 3.1 L Chloride 102 Carbon Dioxide 22 BUN 22 Creatinine 1.11 Glucose 125 H Calcium 10.2 H Liver Function 04/27/22 Range/Units 11:42 Total Bilirubin 1.6 H (0.2-1.0) mg/dl AST 23 (13-39) U/L ALT 27 (7-52) U/L Alkaline Phosphatase 79 (34-104) U/L Albumin 5.2 H (3.4-5.0) gm/dl Diagnostic Findings Abdomen/Pelvis CT 04/27/22 11:[address] WITH IV CONTRAST CT DOSE: 588.14 mGy.cm HISTORY: Acute generalized abdominal pain with nausea and vomiting vomiting blood TECHNIQUE: Multiaxial CT images of the abdomen and pelvis were performed following the IV administration of 94 cc of Optiray, A dose lowering technique was utilized adhering to the principles of ALARA. COMPARISON STUDY: CT abdomen and pelvis 01/28/2022 FINDINGS: The imaged inferior cardiac chambers are unremarkable. The spleen is enlarged measuring up to 13.9 cm in length. Unremarkable pancreas, gallbladder and adrenal glands. Hepatic steatosis. Patency of the hepatic and portal veins. Unremarkable kidneys. No renal or ureteral calculi or hydronephrosis. Partial distention of the urinary bladder with mild wall thickening. Unremarkable prostate. Aorta and IVC are unremarkable. No lymphadenopathy. Circumferential wall thickening of the distal esophagus, similar to prior. Subcentimeter gastrohepatic lymph nodes. There is no bowel obstruction or bowel wall thickening. Colonic diverticulosis. Moderate fecal retention of the right hemicolon. Normal appendix. Stool-filled loops of small bowel within the abdominal right lower quadrant. Unremarkable soft tissues. No acute fracture. Cortical thickening of the right iliac crest may represent a healed chronic fracture. IMPRESSION: 1. No bowel obstruction or bowel wall thickening. Normal appendix. 2. Wall thickening of the distal esophagus redemonstrated suggestive of esophagitis. ACT 112: Negative or not required by law. The above report was generated using voice recognition software. It may contain grammatical, syntax or spelling errors. Electronically signed by: Jay Castaneda M.D. 04/27/2022 1:02 PM Code Status & VTE Plan VTE Prophylaxis Plan VTE Prophylaxis will be ordered: Yes Supervising Physician Co-Signing Physician Notes Patient is a 21-year-old male with history of cannabinoid use who was admitted in June for intractable nausea and vomiting and abdominal pain. He was feeling better and did not get the upper GI endoscopy done. He claims that since, his pain was fairly controlled and he did not have any significant stomach problems. Over the weekend, he started having abdominal pain associated with nausea and intractable vomiting. Pain is located in the epigastric area. Patient was not able to eat or drink. He admits to drinking a sixpack of beer on Wednesday evening. He reports his last marijuana use about a month ago. He admits to pain improving with a hot shower. He also started having some bloody vomitus since yesterday. Admit to general medical floor on telemetry Start Protonix drip Symptomatic treatment of nausea and pain Gastroenterology consult for possible need for upper GI endoscopy. Patient is very dehydrated due to decreased oral intake and persistent nausea and vomiting. He will be started on IV fluid.
[2022-04-27] MEDS: CAPSAICIN CR 0.075% 60 GM TUBE EXT SCH ×2 (16:27→22:46)
[2022-04-27] MEDS ORDERED: ONDANSETRON INJ 2 MG/ML 2 ML VIAL IV PRN (16:52)
[2022-04-27] MEDS: SODIUM CHLORIDE 0.9% 1000ML 1,000 ML IV SCH (17:19)
[2022-04-27 18:11] LABS: Amphetamines+Metham, Urine Neg (Neg); Barbiturates, Urine Neg (Neg); Benzodiazepine, Urine Neg (Neg); Cocaine, Urine Neg (Neg); MDMA (Ecstacy), Urine Neg (Neg); Methadone, Urine Neg (Neg); Opiate, Urine Pos (Neg); Phencyclidine, Urine Neg (Neg)
[2022-04-27 20:10] LABS: Hematocrit (blood only) 44.5 % (40.1-51.0); Hemoglobin 16.3 g/dl (14.0-18.0)
[2022-04-28] MEDS: SODIUM CHLORIDE 0.9% 1000ML 1,000 ML IV SCH ×2 (00:41→08:45)
[2022-04-28] MEDS: PANTOprazole 40 MG in DEXTROSE 5% 100 ML IV SCH ×2 (00:41→05:51)
[2022-04-28] MEDS: CAPSAICIN CR 0.075% 60 GM TUBE EXT SCH ×2 (02:30→09:04)
[2022-04-28 07:32] LABS: Hematocrit (blood only) 43.4 % (40.1-51.0); Hemoglobin 15.9 g/dl (14.0-18.0); Mean Corpuscular Hemoglobin 33.6 pg (25.0-34.0); Mean Corpuscular Hgb Conc 36.6 g/dL (32.0-36.0); Mean Corpuscular Volume 91.8 fL (80.0-100.0); Mean Platelet Volume 10.3 fL (9.4-12.4); Platelet Count 178 K/uL (130-400); RDW Standard Deviation 40.3 fL (36.4-46.3); Red Blood Count 4.73 M/uL (4.63-6.08); White Blood Count 6.64 K/ul (4.8-10.8)
[2022-04-28 08:05] LABS: BUN Creatinine Ratio 14.8 (10-20); Calcium 8.5 mg/dl (8.5-10.1); Creatinine Clr Calc Pharmacy 182.7 ml/min; Est GFR (African American) 146.2 ml/min; Est GFR (Non-African American) 126.2 ml/min; Potassium 3.7 mmol/L (3.5-5.1)
--- NOTE | 2022-04-28 08:52 | Anesthesiology Consultation ---
Date of Service April 28, 2022 Assessment & Plan (1) Encounter for pre-operative examination: Chart Review Chart Review: Acceptable Risk for Surgery, Patient NOT seen in Pre Admission Testing and entry level programmer initiated Consults Requested none ASA ASA2 Proposed Anesthesia Anesthesia Type: MAC Risk / Benefits Reviewed With: PT / POA / Parent / Guardian, Accepts Plan and Informed Consent Obtained History Surgery Operation Date: 04/28/22 17:30 Proposed Procedures p Esophagogastroduodenoscopy Dr Phillips - Theodore Phillips MD Height/Weight Height: 6 ft 2 in Weight: 102.4 kg Allergies Allergy/AdvReac Type Severity Reaction Status Date / Time No Known Allergies Allergy Verified 04/27/22 15:45 Medications Home Medications Medication Instructions Recorded Confirmed Last Taken No Known Home Medications 04/27/22 04/27/22 Unknown Active Medications Generic Name Dose Route Start Last Admin Trade Name Freq PRN Reason Stop Dose Admin Capsaicin 1 appln 04/27/22 15:00 04/28/22 02:30 Capsaicin Cr 0.075% 60 Gm Tube EXT 05/27/22 14:59 Not Given Q6H HUMBLE Pantoprazole Sodium 40 mg/ 100 mls @ 20 mls/hr 04/27/22 15:00 04/28/22 05:51 Dextrose IV 05/27/22 14:59 8 mg/hr Q5H HUMBLE 20 mls/hr Administration 8 MG/HR Sodium Chloride 1,000 mls @ 125 mls/hr 04/27/22 16:52 04/28/22 00:41 Nss 1000ml IV 05/27/22 16:51 125 mls/hr .Q8H HUMBLE Administration Ondansetron HCl 4 mg 04/27/22 16:52 04/27/22 19:35 Ondansetron Inj 2 Mg/Ml 2 Ml Vial IV 05/27/22 16:51 4 mg Q6H PRN Administration Nausea NPO Date Last Intake of Fluids: 04/27/22 Time Last Intake of Fluids: 18:40 Date Last Intake of Solids: 04/27/22 Time Last Intake of Solids: 18:40 Past Medical History Medical History (Updated 04/28/22 @ 08:54 by Rodrigo Calvillo MD) Encounter for pre-operative examination No pertinent family history No pertinent past medical history Past Family History Family History Other No pertinent family history Past Surgical History Surgical History No pertinent past surgical history Social History Smoking Status: Current every day smoker tobacco type: cigarettes Smoking cigarettes per day: 20 Do You Dip or Chew Tobacco: Yes Hx Alcohol Use: Yes Alcohol type: beer alcohol intake frequency: a few times a month Hx Substance Use: Yes substance use type: marijuana Last Used Substance: Days (ago) Last Used Substance Other:: 30 days ago Physical Exam Vital Signs Last Vital Signs Temp 36.9 C 04/28/22 07:15 Pulse 68 04/28/22 07:15 Resp 16 04/28/22 07:15 BP 116/69 04/28/22 07:15 Pulse Ox 98 04/28/22 07:15 O2 Del Method 04/28/22 07:15 Testing Laboratory Results 04/28/22 07:12 04/28/22 07:12 PT 10.2 Seconds (9.0-12.0) 04/27/22 11:42 INR 1.0 (0.9-1.1) 04/27/22 11:42 APTT 26.8 Seconds (21.0-31.0) 04/27/22 11:42 Electrocardiogram Date: 04/27/22 Test Reason : Blood Pressure : / mmHG Vent. Rate : 070 BPM Atrial Rate : 070 BPM P-R Int : 156 ms QRS Dur : 114 ms QT Int : 414 ms P-R-T Axes : 054 062 067 degrees QTc Int : 447 ms Normal sinus rhythm with sinus arrhythmia Normal ECG When compared with ECG of 29-JAN-2022 18:35, QT has shortened Confirmed by Jamshid Hickey ([id number]) on 04/27/2022 3:54:52 PM Chest X-Ray Date: 01/29/22 SINGLE VIEW CHEST CLINICAL HISTORY: Atypical chest pain. Nausea and vomiting. FINDINGS: 2 AP, portable, upright chest radiographs are obtained. No prior studies are available for comparison at the time of dictation. The cardiomediastinal silhouette is unremarkable. An accessory azygous fissure is incidentally noted. The lungs and pleural spaces are clear. No pneumothorax is seen. The bony thorax is grossly intact. IMPRESSION: No active disease in the chest.
--- NOTE | 2022-04-28 09:21 | History & Physical Bridge Note ---
Date of Service April 28, 2022 History & Physical Bridge Note I have examined the patient, reviewed the History & Physical and in the interval since the performance of the History & Physical I have noted the following changes of clinical significance: no changes noted EGD Patient was explained in detail regarding risks, benefits, limitations and alternatives of the above endoscopic procedure. Risks of intravenous sedation used for procedure were also explained. Risks include, but not limited to perforation, bleeding, infection, respiratory distress, cardiac arrest and . Patient is also aware about the possibility of missed lesion. Patient's questions were answered. The patient verbalized understanding the information and agreed to undergo the procedure.
[2022-04-28] MEDS ORDERED: fentaNYL citrate 100 MCG/2 ML VIAL ONE (09:24)
[2022-04-28] MEDS ORDERED: LIDOCAINE 2% MPF LOCAL 5 ML VIAL INFIL ONE (09:24)
[2022-04-28] MEDS ORDERED: PROPOFOL IV EMULSION 10 MG/ML 20 ML VIAL IV ONE (09:24)
--- NOTE | 2022-04-28 09:56 | GI REPORT ---
Patient Name: Florencio Schafer Procedure Date: 04/28/2022 9:43 AM Date of : 2000 Admit Type: Inpatient Age: 21 Gender: Male Attending MD: Theodore Phillips MD Procedure: Upper GI endoscopy Providers: Theodore Phillips MD Referring MD: PAULINO MARIE Indications: Hematemesis Medicines: Propofol per Anesthesia Complications: No immediate complications. Estimated Blood Loss: Estimated blood loss: none. Procedure: Pre-Anesthesia Assessment: - Prior to the procedure, a History and Physical was performed, and patient medications, allergies and sensitivities were reviewed. The patient's tolerance of previous anesthesia was reviewed. - The risks and benefits of the procedure and the sedation options and risks were discussed with the patient. All questions were answered and informed consent was obtained. - Patient identification and proposed procedure were verified prior to the procedure by the physician and the nurse. The procedure was verified in the procedure room. - Pre-procedure physical examination revealed no contraindications to sedation. After obtaining informed consent, the endoscope was passed under direct vision. Throughout the procedure, the patient's blood pressure, pulse, and oxygen saturations were monitored continuously. The Endoscope was introduced through the mouth, and advanced to the second part of duodenum. The upper GI endoscopy was accomplished without difficulty. The patient tolerated the procedure well. Findings: LA Grade A (one or more mucosal breaks less than 5 mm, not extending between tops of 2 mucosal folds) esophagitis with no bleeding was found in the lower third of the esophagus. Mildly erythematous mucosa without bleeding was found in the gastric body. The duodenal bulb and second portion of the duodenum were normal. Impression: - LA Grade A reflux esophagitis. - Erythematous mucosa in the gastric body. - Normal duodenal bulb and second portion of the duodenum. - No specimens collected. Recommendation: - [facility] - Use a proton pump inhibitor PO daily. - Diet as tolerated. - Can go home from GI standpoint. - Recall GI if needed. Theodore Phillips MD 04/28/2022 9:55:55 AM This report has been signed electronically. Note Initiated On: 04/28/2022 9:43 AM Number of Addenda: 0 I attest to the content of the Intraoperative Record and orders documented therein, exceptions below {[id number]}
[2022-04-28] MEDS ORDERED: PANTOprazole 40 MG in SYRINGE 0 ML IV SCH (11:00)
--- NOTE | 2022-04-28 12:46 | Student Report ---
[facility] Med Student Progress Note Date of Service Date of service: April 28, 2022 Subjective Subjective: No acute events overnight. Pt denies fever chills, night sweats. Denies abdominal pain/N/V since last night. Pt states that he took a shower and felt a lot of relief of symptoms afterwards. Denies any CP, SOB, dizziness on standing. States that he is feeling hungry and would like to try to eat something. He says that he has urinated a couple of times since last night but has not had a bowel movement yet. ROS ROS: Ten systems reviewed and negative except as noted above. Physical Exam Physical Exam: Gen: A&O x3, NAD, lying in bed, conversing easily HEENT: Normocephalic, atraumatic, conjunctivae moist, sclerae anicteric, mucous membranes moist Lung: CTA bilaterally, no wheezes/rales/rhonchi Heart: Regular rate, regular rhythm, no murmurs, rubs, or gallops. Abdomen: Soft, NT, rounded, +BS x 4 Extremities: No edema, palpable pulses in AE. Skin: Warm, pink, dry, no rash Results Results: Short CBC 04/27/22 04/28/22 Range/Units 19:21 07:12 WBC 6.64 (4.8-10.8) K/ul Hgb 16.3 D 15.9 (14.0-18.0) g/dl Hct 44.5 43.4 (40.1-51.0) % Plt Count 178 (130-400) K/uL BMP 04/28/22 07:12 Sodium 139 Potassium 3.7 Chloride 111 H Carbon Dioxide 23 BUN 12 Creatinine 0.81 D Glucose 101 H Calcium 8.5 Medication List Capsaicin (Capsaicin Cr 0.075% 60 Gm Tube) 1 appln EXT Q6H HUMBLE Pantoprazole Sodium 40 mg/ (Dextrose) 100 mls @ 20 mls/hr IV Q5H HUMBLE Sodium Chloride (Nss 1000ml) 1,000 mls @ 125 mls/hr IV .Q8H HUMBLE Ondansetron HCl (Ondansetron Inj 2 Mg/Ml 2 Ml Vial) 4 mg IV Q6H PRN A&P A&P: 1. Hematemesis/GERD: Continues on pantoprazole drip. Plan to convert to OTC PPI. Needs follow up with PCP, appointment made with [place] office. Spoke with patient at length about marijuana use and related hyperemesis. Pt verbalized understanding and agreed to abstain. 2. Hypkalemia: Repleted with 40mEq. 3.7 on labs this morning. Disposition: Plan for d/c this afternoon if patient can tolerate PO intake.
--- NOTE | 2022-04-28 13:48 | Anesthesiology Progress Note ---
Date of Service April 28, 2022 Anesthesia Post Procedure Vital Signs Vital Signs: Temp Pulse Pulse Resp BP Pulse Ox O2 Del Method 04/28/22 11:03 36.7 C 55 L 16 112/62 96 04/28/22 10:27 58 L 16 110/67 96 Room Air 04/28/22 10:12 56 L 14 108/69 95 Room Air 04/28/22 09:57 60 12 107/55 L 96 Room Air 04/28/22 09:18 36.4 C L 50 L 16 130/73 95 Room Air 04/28/22 07:15 36.9 C 68 16 116/69 98 Room Air 04/27/22 22:04 37.1 C 60 18 130/64 96 Room Air 04/27/22 19:15 36.8 C 57 L 18 124/69 96 Room Air 04/27/22 18:58 36.8 C 57 L 18 124/69 96 Room Air 04/27/22 18:00 57 L 18 162/91 H 96 Room Air 04/27/22 17:00 65 18 117/66 96 Room Air 04/27/22 15:00 65 20 116/71 96 Room Air Transfer of Care Handoff Completed per policy Notes Mental Status: alert / awake / arousable and participated in evaluation Patient Amnestic to Procedure: Yes Nausea / Vomiting: adequately controlled Pain: adequately controlled Airway Patency, RR, SpO2: stable & adequate BP & HR: stable & adequate Hydration State: stable & adequate Anesthetic Complications: no major complications apparent and Pt Satisfied with anesthetic care
--- NOTE | 2022-04-28 18:39 | Discharge Summary ---
Date of Service April 28, 2022 Admission HPI Per Admitting Provider 21-year-old male without significant past medical history who presents the ED for evaluation of nausea and vomiting. Patient reports symptoms began 3 days ago. He reports multiple episodes of vomiting and developed hematemesis yesterday. Patient describes a moderate amount of blood with vomiting. States that he has been unable to keep down food or liquids. He reports that he has not urinated or had a bowel movement in 2 days. Patient was admitted for similar symptoms 3 months ago, intractable nausea and vomiting was attributed to cannabis hyperemesis. Patient was referred for outpatient EGD however never followed up.Patient reports smoking marijuana occasionally, last use was 2 weeks ago. Reports weekly intake of alcohol, last use about 3 days ago. He is a daily cigarette smoker.Patient currently describing epigastric discomfort and chest burning consistent with heartburn. Patient denies fevers and chills. No chest pain or palpitations. Denies lightheadedness, dizziness, diaphoresis, syncopal events. In the ED, CT ABD/pelvis shows Wall thickening of the distal esophagus redemonstrated suggestive of esophagitis. Patient was given IV Reglan, IV morphine, IV Zofran, IV Phenergan, IV Protonix 40 mg. Labs show WBC 14 K, Hgb 19.4, BUN 22, K+ 3.1. Principal Diagnosis Esophagitis Cannabis hyperemesis Discharge Exam Constitutional WD/WN, vitals as above Respiratory normal respiratory effort, lungs clear to auscultation Cardiovascular Rate/Rhythm: regular rate and regular rhythm Vessels: normal peripheral pulses Extremities: no edema Gastrointestinal (Abdomen) Percussion/Palpation: abdomen soft; abdomen nontender Skin no rashes, warm and dry Neurologic no focal motor deficits Psychiatric A+Ox3, euthymic affect Discharge Data Allergies Allergy/AdvReac Type Severity Reaction Status Date / Time No Known Allergies Allergy Verified 04/27/22 15:45 Consultations 04/27/22 16:52 Consult Gastroenterology Routine Procedures Performed Operation Date: 04/28/22 17:30 Actual Procedures p Esophagogastroduodenoscopy - Theodore Phillips MD EGD impression: LA grade a reflux esophagitis Erythematous mucosa in the gastric body Normal duodenal bulb and second portion of the duodenum Ordered Studies Impressions Abdomen/Pelvis CT 04/27/22 11:[address] WITH IV CONTRAST CT DOSE: 588.14 mGy.cm HISTORY: Acute generalized abdominal pain with nausea and vomiting vomiting blood TECHNIQUE: Multiaxial CT images of the abdomen and pelvis were performed following the IV administration of 94 cc of Optiray, A dose lowering technique was utilized adhering to the principles of ALARA. COMPARISON STUDY: CT abdomen and pelvis 01/28/2022 FINDINGS: The imaged inferior cardiac chambers are unremarkable. The spleen is enlarged measuring up to 13.9 cm in length. Unremarkable pancreas, gallbladder and adrenal glands. Hepatic steatosis. Patency of the hepatic and portal veins. Unremarkable kidneys. No renal or ureteral calculi or hydronephrosis. Partial distention of the urinary bladder with mild wall thickening. Unremarkable prostate. Aorta and IVC are unremarkable. No lymphadenopathy. Circumferential wall thickening of the distal esophagus, similar to prior. Subcentimeter gastrohepatic lymph nodes. There is no bowel obstruction or bowel wall thickening. Colonic diverticulosis. Moderate fecal retention of the right hemicolon. Normal appendix. Stool-filled loops of small bowel within the abdominal right lower quadrant. Unremarkable soft tissues. No acute fracture. Cortical thickening of the right iliac crest may represent a healed chronic fracture. IMPRESSION: 1. No bowel obstruction or bowel wall thickening. Normal appendix. 2. Wall thickening of the distal esophagus redemonstrated suggestive of esophagitis. ACT 112: Negative or not required by law. The above report was generated using voice recognition software. It may contain grammatical, syntax or spelling errors. Electronically signed by: Jay Castaneda M.D. 04/27/2022 1:02 PM Hospital Course (1) Hematemesis: Patient presented from home with reports of intractable nausea and vomiting x 3 days. Admitted for similar symptoms about 3 months ago which was attributed to cannabis hyperemesis. Patient referred for outpatient EGD however never followed up. Patient reports "occasional" use of marijuana. During exam patient asking to take a hot shower for symptom relief. CT abd/pelvis showing Wall thickening of the distal esophagus redemonstrated suggestive of esophagitis. GI consulted S/P EGD 04/28: LA grade a reflux esophagitis Erythematous mucosa in the gastric body Normal duodenal bulb and second portion of the duodenum Hgb 19.5 on admission - likely heme concentration from dehydration Hgb remained stable during hospitalization, Hgb 15.9 on day of discharge and after IVF hydration Started on PPI drip and transition to PO PPI daily on discharge Patient educated regarding cannabis hyperemesis and encouraged patient to maintain complete cessation. (2) Hypokalemia: K+ 3.1, Mg+ 1.9 Replaced and resolved Total Time Total Time Spent Total Time Spent (In Minutes): 35 Discharge Plan Discharge Items Patient Disposition: Home - Self-Care Reason For Visit: Nausea, Vomiting Discharge Diagnosis: Esophagitis (irrigation of the esophagus) Activity: Resume your previous activity Non-emergency contact: Primary Care Provider Call non-emergency contact if: you have any medication questions and your symptoms worsen Follow-up/Referrals: Jason Melendez MD [Hospitalist] - 05/04/22 11:20 am (Date & [facility]22 11[facility] Diet: Regular Addtl Attending Provider Instructions: You were admitted to the hospital for nausea, vomiting, and vomiting blood. You had an endoscopy by the GI doctor that showed esophagitis (irritation of the esophagus), likely from multiple episodes of vomiting. Marijuana use can lead to nausea and vomiting, please continue to abstain from marijuana use. To help with the irritation of your esophagus, you will be started on Protonix (pantoprazole) 40 mg daily. An appointment has been made for you to establish care with a PCP. It was a pleasure taking care of you. If you need to reach a member of the [facility] hospitalist team at [facility], please call [phone]. AMANDA Garcia Pending Studies at Discharge: No Stand-Alone Forms: My [facility], Smoking Cessation Medications and DC Order Prescriptions: New pantoprazole [Protonix] 40 mg tablet,delayed release (DR/EC) 40 mg PO DAILY Qty: 30 0RF Discharge Orders: Discharge Order (Routine); Ordered 04/28/22 Ordered By: Orquidea Rogers Admission Data Admit Date/Time: 04/27/22 14:40 Attending Provider: Ravinder Mcintosh Admit Provider: Alize Bernard Primary Care Provider: PCP,NO Other Providers: Alize Bernard ; Theodore Phillips Other Interventions: Discharge Summary Assessment (RN) Last Done: 04/28/22 14:06
[2022-04-30 10:49] LABS: Codeine Urine NEGATIVE ng/mL (<50); Hydrocodone Urine NEGATIVE ng/mL (<50); Hydromor Urine NEGATIVE ng/mL (<50); Marijuana Quant, GCMS Urine 2959 ng/mL (<5); Morphine Urine 1080 ng/mL (<50); Norhydrocodone Conf Ur NEGATIVE ng/mL (<50); Noroxycodone Urine NEGATIVE ng/mL (<50); Oxycodone Urine NEGATIVE ng/mL (<50); Oxymorph Urine NEGATIVE ng/mL (<50)
== END 2022-04-28 15:00 | disposition home or self-care (01) ==
LOC: EDINP 11:20 → ED 11:20 → SUATTDRO 14:40 → 3N 16:53
DX: F17.210 Nicotine dependence, cigarettes, uncomplicated; K92.0 Hematemesis; E87.6 Hypokalemia; E86.0 Dehydration; K21.00 Gastro-esophageal reflux disease with esophagitis, without bleeding; F12.10 Cannabis abuse, uncomplicated

== ENCOUNTER 2024-08-30 07:45 | Inpatient (IN) ==
--- NOTE | 2024-08-30 08:25 | Emergency Department Note ---
Impression & Plan Intractable vomiting ADMIT ED Provider Note HPI: History obtained from patient. The patient is a 23-year-old gentleman who presents the emergency department with 3 days of upper and mid abdominal pain as well as vomiting. Patient states he also has a sore throat and some shortness of breath that began today. On arrival here to the ED the patient complains of some pain in the upper abdomen, he is hemodynamically stable on arrival but he is anxious appearing. Patient is saturating well on room air on arrival. Patient denies any chest pain but states he does have some pain in the epigastric area. ROS: - Per HPI Differential Diagnosis: Cyclic vomiting syndrome, cannabis induced hyperemesis, acute gastritis, acute esophagitis, acute pancreatitis, peptic ulcer disease, acute cholecystitis, appendicitis, amongst other potential pathologies. *Outpatient medications and allergy history reviewed. PE: General: Alert HEENT: Normocephalic, trachea midline Eyes: Extraocular eye movement is intact, no scleral erythema Pulmonary: Clear to auscultation bilaterally, no wheezing Cardio: Regular rate and rhythm GI: Abdomen is soft to palpation, mild tenderness to palpation over the epigastric region without any guarding or rigidity : No suprapubic tenderness MSK: No evidence of trauma or malformation of the extremities, no edema Skin: No evidence of rash Neuro: Alert, no focal deficits Psychiatric: Cooperative INDEPENDENT INTERPRETATIONS: rail express clerk: (As interpreted by myself): - An order was placed for continuous cardiac monitoring - Patient was noted to be in sinus rhythm with a rate of 75 EKG: (As interpreted by myself): Rate: 66 Rhythm: Normal sinus rhythm Intervals: Within normal limits ST changes: No ST elevation Time: 0834 Chest x-ray: (As interpreted by myself): No acute process Interventions provided in ED: -IV Zofran, IV fluid bolus, IV Reglan, IV Benadryl, IV Protonix bolus and drip, IV potassium K rider Medical Decision Making: IV was established and lab work obtained, patient was placed on dye penetrant testing technician. Lab work shows a leukocytosis of 21.1, hemoglobin is normal, platelet count is normal, CMP shows hypokalemia 2.4 which was ordered for IV repletion, chloride is also low at 83, creatinine is elevated at 1.74 and BUN of 46. Patient was given IV fluids here in the ED for suspected dehydration with his vomiting over the past 3 days. Troponin is negative, EKG per my interpretation shows normal sinus rhythm without any acute ischemic changes. Urinalysis shows 2+ ketones without evidence of infection. CT imaging of the abdomen pelvis with IV contrast was obtained, there is evidence of esophagitis without any evidence of acute surgical abnormalities. Patient was then started on a Protonix bolus and drip. Overall given the patient's renal function and hypokalemia with inability to tolerate p.o. intake, I feel he should be admitted to the hospital. He still does have some vomiting on my reassessment. Patient is in agreement for admission, case was discussed with the on-call midlevel provider for [facility] and the patient was placed for admission to the service of Dr. Chery. Consultants/Discussions held with other healthcare providers: -Hospitalist, Dr. Chery Disposition discussion held by myself with: -Patient Diagnosis: 1. Intractable nausea and vomiting, acute 2. Hypokalemia, acute 3. Leukocytosis, acute, nonspecific 4. Elevated creatinine, acute Disposition: Admission Ricardo Her DO Emergency Medicine Past Med/Surg History Problem List (Updated 08/30/24 @ 14:03 by Ricardo Her DO) Intractable vomiting (Acute) Hematemesis (Acute) Vomiting (Acute) GERD (gastroesophageal reflux disease) Medical History No pertinent past medical history No pertinent family history Surgical History No pertinent past surgical history Family History Other No pertinent family history Social History Smoking Status: Former smoker Tobacco Type: Cigarettes Cigarettes Per Day: 20; Second Hand Exposure: No; Do You Dip or Chew Tobacco: Yes; Hx Alcohol Use: Yes Alcohol type: beer Hx Substance Use: Yes Prescribed Medications: Marijuana Last Used Substance: Days (ago) Last Used Substance Other:: 30 days ago Preferred Language: Mohawk Communication Ability: Effective Night Shift Supervisor Required: No Beliefs That Will Affect Care: None Current Living Situation: Family Feels Safe at Home: Yes Assistive Devices: None Allergies Allergies Allergy/AdvReac Type Severity Reaction Status Date / Time No Known Allergies Allergy Verified 04/27/22 15:45 Home Meds Home Medications Medication Instructions Recorded Confirmed No Known Home Medications 08/30/24 08/30/24 Results & Data (ED) Vital Signs Vital Signs - 24 hr 08/30/24 07:50 08/30/24 08:24 08/30/24 08:46 Temperature 36.6 C Temperature Source Temporal Artery Scan Pulse Rate 101 H 79 Pulse Rate [Apical] Pulse Rate from SpO2 Sensor Respiratory Rate 20 Blood Pressure 137/84 Blood Pressure [Right Arm] Blood Pressure Mean 101 Blood Pressure Mean [Right Arm] Pulse Oximetry 96 Oxygen Delivery Method Room Air Room Air Sepsis Recent Fever Within 48 Hours No Sepsis New/Unexplained Change in Mental Status N/A Sepsis Action Taken by Nursing No Action Required 08/30/24 09:18 08/30/24 10:12 08/30/24 10:12 Temperature Temperature Source Pulse Rate 71 Pulse Rate [Apical] 72 Pulse Rate from SpO2 Sensor 70 Respiratory Rate 18 19 Blood Pressure 132/80 Blood Pressure [Right Arm] 149/83 H Blood Pressure Mean 98 Blood Pressure Mean [Right Arm] 105 Pulse Oximetry 99 98 Oxygen Delivery Method Room Air Room Air Sepsis Recent Fever Within 48 Hours Sepsis New/Unexplained Change in Mental Status Sepsis Action Taken by Nursing 08/30/24 10:12 08/30/24 10:12 08/30/24 10:48 Temperature Temperature Source Pulse Rate 78 Pulse Rate [Apical] Pulse Rate from SpO2 Sensor 78 Respiratory Rate 22 Blood Pressure 132/80 132/80 Blood Pressure [Right Arm] Blood Pressure Mean 98 98 Blood Pressure Mean [Right Arm] Pulse Oximetry 96 Oxygen Delivery Method Sepsis Recent Fever Within 48 Hours Sepsis New/Unexplained Change in Mental Status Sepsis Action Taken by Nursing 08/30/24 10:54 08/30/24 11:00 08/30/24 11:00 Temperature Temperature Source Pulse Rate 102 H 97 H Pulse Rate [Apical] Pulse Rate from SpO2 Sensor 102 H 95 H Respiratory Rate 15 18 Blood Pressure 142/80 H Blood Pressure [Right Arm] Blood Pressure Mean 94 Blood Pressure Mean [Right Arm] Pulse Oximetry 97 95 Oxygen Delivery Method Sepsis Recent Fever Within 48 Hours Sepsis New/Unexplained Change in Mental Status Sepsis Action Taken by Nursing 08/30/24 11:21 08/30/24 11:39 08/30/24 11:42 Temperature Temperature Source Pulse Rate 74 69 74 Pulse Rate [Apical] Pulse Rate from SpO2 Sensor 62 67 74 Respiratory Rate 27 H 18 19 Blood Pressure Blood Pressure [Right Arm] Blood Pressure Mean Blood Pressure Mean [Right Arm] Pulse Oximetry 97 99 99 Oxygen Delivery Method Sepsis Recent Fever Within 48 Hours Sepsis New/Unexplained Change in Mental Status Sepsis Action Taken by Nursing 08/30/24 11:51 08/30/24 11:54 08/30/24 12:00 Temperature Temperature Source Pulse Rate 66 65 Pulse Rate [Apical] Pulse Rate from SpO2 Sensor 67 64 Respiratory Rate 23 20 Blood Pressure 132/76 Blood Pressure [Right Arm] Blood Pressure Mean 86 Blood Pressure Mean [Right Arm] Pulse Oximetry 92 93 Oxygen Delivery Method Sepsis Recent Fever Within 48 Hours Sepsis New/Unexplained Change in Mental Status Sepsis Action Taken by Nursing 08/30/24 12:06 08/30/24 12:21 08/30/24 12:42 Temperature Temperature Source Pulse Rate 77 84 71 Pulse Rate [Apical] Pulse Rate from SpO2 Sensor 76 82 70 Respiratory Rate 19 14 18 Blood Pressure Blood Pressure [Right Arm] Blood Pressure Mean Blood Pressure Mean [Right Arm] Pulse Oximetry 95 99 96 Oxygen Delivery Method Sepsis Recent Fever Within 48 Hours Sepsis New/Unexplained Change in Mental Status Sepsis Action Taken by Nursing 08/30/24 12:43 08/30/24 12:48 08/30/24 13:00 Temperature Temperature Source Pulse Rate 68 71 Pulse Rate [Apical] Pulse Rate from SpO2 Sensor 70 Respiratory Rate 21 Blood Pressure 151/83 H Blood Pressure [Right Arm] Blood Pressure Mean 98 Blood Pressure Mean [Right Arm] Pulse Oximetry 100 Oxygen Delivery Method Sepsis Recent Fever Within 48 Hours Sepsis New/Unexplained Change in Mental Status Sepsis Action Taken by Nursing 08/30/24 13:03 Temperature Temperature Source Pulse Rate 71 Pulse Rate [Apical] Pulse Rate from SpO2 Sensor 71 Respiratory Rate 23 Blood Pressure Blood Pressure [Right Arm] Blood Pressure Mean Blood Pressure Mean [Right Arm] Pulse Oximetry 95 Oxygen Delivery Method Sepsis Recent Fever Within 48 Hours Sepsis New/Unexplained Change in Mental Status Sepsis Action Taken by Nursing Laboratory Data 08/30/24 09:13 08/30/24 09:16 Lab Results 08/30/24 08/30/24 08/30/24 Range/Units 08:10 08:18 09:13 WBC Cancelled 21.11 H RBC Cancelled 5.50 Hgb Cancelled 17.5 Hct Cancelled 47.0 MCV Cancelled 85.5 MCH Cancelled 31.8 MCHC Cancelled 37.2 H RDW Std Deviation Cancelled 37.4 RDW Coeff of [place] Cancelled 12.0 Plt Count Cancelled 282 MPV Cancelled 10.8 Immature Gran % (Auto) Cancelled 0.7 Neut % (Auto) Cancelled 77.5 Lymph % (Auto) Cancelled 9.0 [place] % (Auto) Cancelled 12.4 Eos % (Auto) Cancelled 0.3 Baso % (Auto) Cancelled 0.1 Neut # (Auto) Cancelled 16.39 H Lymph # (Auto) Cancelled 1.89 [place] # (Auto) Cancelled 2.61 H Eos # (Auto) Cancelled 0.06 Baso # (Auto) Cancelled 0.02 Immature Gran # (Auto) Cancelled 0.14 Absolute Nucleated RBC Cancelled Nucleated RBC % (auto) Cancelled Neutrophils % (Manual) Cancelled Band Neutrophils % Cancelled Lymphocytes % (Manual) Cancelled Prolymphocyte % Cancelled Reactive Lymphs % (Man) Cancelled Monocytes % (Manual) Cancelled Eosinophils % (Manual) Cancelled Basophils % (Manual) Cancelled Metamyelocytes % (Man) Cancelled Myelocytes % (Man) Cancelled Promyelocytes % (Man) Cancelled Blast Cells % (Manual) Cancelled Plasma Cell % (Manual) Cancelled Other Cells % Cancelled Nucleated RBC % Cancelled Neutrophils # (Manual) Cancelled Band Neutrophils # Cancelled Total Absolute Neuts Cancelled Lymphocytes # (Manual) Cancelled Prolymphocyte # Cancelled Reactive Lymphs # Cancelled Total Abs Lymphocytes Cancelled Monocytes # (Manual) Cancelled Eosinophils # (Manual) Cancelled Basophils # (Manual) Cancelled Metamyelocytes # (Man) Cancelled Myelocytes # (Manual) Cancelled Promyelocytes # (Man) Cancelled Blast Cells # (Man) Cancelled Plasma Cell # (Manual) Cancelled Other Cells # Cancelled Nucleated RBCs # (Man) Cancelled Hypersegmented Neuts Cancelled Hyposegmented Neuts Cancelled Hypogranular Neuts Cancelled Large Granular Lymphs Cancelled # Lrg Granular Lymphs Cancelled Hairy Cells Cancelled Smudge Cells Cancelled Toxic Granulation Cancelled Toxic Vacuolation Cancelled Dohle Bodies Cancelled Gurjit Rods Cancelled Platelet Estimate Cancelled Hypogranular Platelets Cancelled Giant Platelets Cancelled Platelet Satelliting Cancelled RBC Morphology Cancelled Polychromasia Cancelled Hypochromasia Cancelled Poikilocytosis Cancelled Basophilic Stippling Cancelled Anisocytosis Cancelled Microcytosis Cancelled Macrocytosis Cancelled Spherocytes Cancelled Pappenheimer Bodies Cancelled Sickle Cells Cancelled Target Cells Cancelled Tear Drop Cells Cancelled Ovalocytes Cancelled Stomatocytes Cancelled [place] Bodies Cancelled Echinocytes Cancelled Acanthocytes (Spur) Cancelled Rouleaux Cancelled RBC Agglutinates Cancelled Schistocytes Cancelled [place]zary Cell Cancelled Sodium 133 L (136-145) mmol/L Potassium TNP Chloride 83 L (98-107) mmol/L Carbon Dioxide 29 (21-32) mmol/L Anion Gap 21 H (3-11) BUN 46 H (6-23) mg/dl Creatinine 1.74 H (0.6-1.4) mg/dl Est Cr Clr Drug Dosing 82.6 ml/min eGFR 55.45 BUN/Creatinine Ratio 26.4 H (10-20) Glucose 159 H (70-99(Fasting)) mg/dl Calcium 10.4 H (8.6-10.3) mg/dl Total Bilirubin 2.8 H (0.2-1.0) mg/dl AST TNP ALT 30 (7-52) U/L Alkaline Phosphatase 86 (34-104) U/L Troponin I High Sens 13.8 (0-20) pg/ml Total Protein 8.8 H (6.0-8.3) gm/dl Albumin 5.5 H (3.4-5.0) gm/dl Globulin 3.3 (2.5-4.0) gm/dl Albumin/Globulin Ratio 1.7 (0.9-2) Lipase 11 (11-82) U/L Procalcitonin 0.03 (0-0.5) ng/ml Urine Color Urine Appearance (Clear) Urine pH (4.5-7.5) Ur Specific [place] (1.000-1.030) Urine Protein (Negative) Urine Glucose (UA) (Negative) Urine Ketones (Negative) Urine Blood (Negative) Urine Nitrite (Negative) Urine Bilirubin (Negative) Urine Urobilinogen (Negative) Ur Leukocyte Esterase (Negative) Urine WBC (Auto) (0-5) /hpf Urine RBC (Auto) (0-2) /hpf U Hyaline Cast (Auto) (0-2) /lpf U Epithel Cells (Auto) (0-2) /hpf Urine Bacteria (Auto) (None Seen) Adenovirus (PCR) Not Detected (NotDetected) B. pertussis DNA (PCR) Not Detected (NotDetected) B.parapertussis DNA PCR Not Detected (NotDetected) C. pneumoniae DNA (PCR) Not Detected (NotDetected) Coronavirus OC43 (PCR) Not Detected (NotDetected) Coronavirus HKU1 (PCR) Not Detected (NotDetected) Coronavirus 229E (PCR) Not Detected (NotDetected) SARS-CoV-2 (PCR) Not Detected (NotDetected) Coronavirus NL63 (PCR) Not Detected (NotDetected) Human Metapneumovir PCR Not Detected (NotDetected) Influenza Type A (PCR) Not Detected (NotDetected) Influenza Type B (PCR) Not Detected (NotDetected) M. pneumoniae (PCR) Not Detected (NotDetected) Parainfluenza 1 (PCR) Not Detected (NotDetected) Parainfluenza 2 (PCR) Not Detected (NotDetected) Parainfluenza 3 (PCR) Not Detected (NotDetected) Parainfluenza 4 (PCR) Not Detected (NotDetected) RSV (PCR) Not Detected (NotDetected) Entero/Rhino (PCR) Not Detected (NotDetected) Blood Parasites ID Cancelled 08/30/24 08/30/24 08/30/24 Range/Units 09:16 11:30 12:48 WBC RBC Hgb Hct MCV MCH MCHC RDW Std Deviation RDW Coeff of [place] Plt Count MPV Immature Gran % (Auto) Neut % (Auto) Lymph % (Auto) [place] % (Auto) Eos % (Auto) Baso % (Auto) Neut # (Auto) Lymph # (Auto) [place] # (Auto) Eos # (Auto) Baso # (Auto) Immature Gran # (Auto) Absolute Nucleated RBC Nucleated RBC % (auto) Neutrophils % (Manual) Band Neutrophils % Lymphocytes % (Manual) Prolymphocyte % Reactive Lymphs % (Man) Monocytes % (Manual) Eosinophils % (Manual) Basophils % (Manual) Metamyelocytes % (Man) Myelocytes % (Man) Promyelocytes % (Man) Blast Cells % (Manual) Plasma Cell % (Manual) Other Cells % Nucleated RBC % Neutrophils # (Manual) Band Neutrophils # Total Absolute Neuts Lymphocytes # (Manual) Prolymphocyte # Reactive Lymphs # Total Abs Lymphocytes Monocytes # (Manual) Eosinophils # (Manual) Basophils # (Manual) Metamyelocytes # (Man) Myelocytes # (Manual) Promyelocytes # (Man) Blast Cells # (Man) Plasma Cell # (Manual) Other Cells # Nucleated RBCs # (Man) Hypersegmented Neuts Hyposegmented Neuts Hypogranular Neuts Large Granular Lymphs # Lrg Granular Lymphs Hairy Cells Smudge Cells Toxic Granulation Toxic Vacuolation Dohle Bodies Gurjit Rods Platelet Estimate Hypogranular Platelets Giant Platelets Platelet Satelliting RBC Morphology Polychromasia Hypochromasia Poikilocytosis Basophilic Stippling Anisocytosis Microcytosis Macrocytosis Spherocytes Pappenheimer Bodies Sickle Cells Target Cells Tear Drop Cells Ovalocytes Stomatocytes [place] Bodies Echinocytes Acanthocytes (Spur) Rouleaux RBC Agglutinates Schistocytes Sezary Cell Sodium (136-145) mmol/L Potassium 2.4 L* Chloride (98-107) mmol/L Carbon Dioxide (21-32) mmol/L Anion Gap (3-11) BUN (6-23) mg/dl Creatinine (0.6-1.4) mg/dl Est Cr Clr Drug Dosing ml/min eGFR BUN/Creatinine Ratio (10-20) Glucose (70-99(Fasting)) mg/dl Calcium (8.6-10.3) mg/dl Total Bilirubin (0.2-1.0) mg/dl AST 40 H ALT (7-52) U/L Alkaline Phosphatase (34-104) U/L Troponin I High Sens 11.5 (0-20) pg/ml Total Protein (6.0-8.3) gm/dl Albumin (3.4-5.0) gm/dl Globulin (2.5-4.0) gm/dl Albumin/Globulin Ratio (0.9-2) Lipase (11-82) U/L Procalcitonin (0-0.5) ng/ml Urine Color Yellow Urine Appearance Clear (Clear) Urine pH 8.0 H (4.5-7.5) Ur Specific [place] > 1.045 H (1.000-1.030) Urine Protein 1+ H (Negative) Urine Glucose (UA) Negative (Negative) Urine Ketones 2+ H (Negative) Urine Blood Negative (Negative) Urine Nitrite Negative (Negative) Urine Bilirubin Negative (Negative) Urine Urobilinogen Negative (Negative) Ur Leukocyte Esterase Negative (Negative) Urine WBC (Auto) 0-5 (0-5) /hpf Urine RBC (Auto) 0-2 (0-2) /hpf U Hyaline Cast (Auto) 0-2 (0-2) /lpf U Epithel Cells (Auto) 0-2 (0-2) /hpf Urine Bacteria (Auto) None Seen (None Seen) Adenovirus (PCR) (NotDetected) B. pertussis DNA (PCR) (NotDetected) B.parapertussis DNA PCR (NotDetected) C. pneumoniae DNA (PCR) (NotDetected) Coronavirus OC43 (PCR) (NotDetected) Coronavirus HKU1 (PCR) (NotDetected) Coronavirus 229E (PCR) (NotDetected) SARS-CoV-2 (PCR) (NotDetected) Coronavirus NL63 (PCR) (NotDetected) Human Metapneumovir PCR (NotDetected) Influenza Type A (PCR) (NotDetected) Influenza Type B (PCR) (NotDetected) M. pneumoniae (PCR) (NotDetected) Parainfluenza 1 (PCR) (NotDetected) Parainfluenza 2 (PCR) (NotDetected) Parainfluenza 3 (PCR) (NotDetected) Parainfluenza 4 (PCR) (NotDetected) RSV (PCR) (NotDetected) Entero/Rhino (PCR) (NotDetected) Blood Parasites ID Administered Medications Potassium Chloride 40 meq/ (Dextrose/Sodium Chloride) 1,020 mls @ 125 mls/hr IV .Q8H10M ON LICENSE OF [facility] Stop: 08/31/24 10:44 Last Admin: 08/30/24 11:19 Dose: 125 mls/hr Documented By: CHANDRAKANT Pantoprazole Sodium 40 mg/ (Dextrose) 100 mls @ 20 mls/hr IV Q5H ON LICENSE OF [facility] Stop: 09/29/24 11:14 Last Admin: 08/30/24 12:38 Dose: 8 mg/hr, 20 mls/hr Documented By: LY Potassium Chloride (K Gary / Wtr) 10 meq in 100 mls @ 100 mls/hr IV Q1H [facility] Stop: 08/30/24 15:59 Last Admin: 08/30/24 13:52 Dose: 100 mls/hr Documented By: Infusion: 08/30/24 13:51 Dose: Infused Documented By: Admin: 08/30/24 12:42 Dose: 100 mls/hr Documented By: LY Discontinued Medications Diphenhydramine HCl (Diphenhydramine 50 Mg/Ml Vial) 25 mg IV NOW STA Stop: 08/30/24 10:56 Last Admin: 08/30/24 11:00 Dose: 25 mg Documented By: CHANDRAKANT Sodium Chloride (Nss) 1,000 mls @ 999 mls/hr IV .Q1H1M ONE Stop: 08/30/24 09:21 Last Infusion: 08/30/24 09:29 Dose: Infused Documented By: Admin: 08/30/24 08:28 Dose: 999 mls/hr Documented By: CHANDRAKANT Sodium Chloride (Nss) 1,000 mls @ 999 mls/hr IV .Q1H1M ONE Stop: 08/30/24 11:46 Last Infusion: 08/30/24 12:07 Dose: Infused Documented By: Admin: 08/30/24 10:48 Dose: 999 mls/hr Documented By: CHANDRAKANT Pantoprazole Sodium 80 mg/ (Dextrose) 120 mls @ 480 mls/hr IV NOW ONE Stop: 08/30/24 11:13 Last Infusion: 08/30/24 12:20 Dose: Infused Documented By: Admin: 08/30/24 12:05 Dose: 480 mls/hr Documented By: CHANDRAKANT Ceftriaxone Sodium (Rocephin) 2,000 mg in 50 mls @ 100 mls/hr IV ONE ONE Stop: 08/30/24 12:59 Last Infusion: 08/30/24 13:07 Dose: Infused Documented By: Admin: 08/30/24 12:37 Dose: 100 mls/hr Documented By: LY Ioversol (Optiray 320 100ml) 94 ml IV ONCE ONE Stop: 08/30/24 09:31 Last Admin: 08/30/24 09:30 Dose: 94 ml Documented By: DIANA Lorazepam (Lorazepam 2 Mg/1 Ml Vial) 1 mg IV NOW STA Stop: 08/30/24 09:09 Last Admin: 08/30/24 09:16 Dose: 1 mg Documented By: CHANDRAKANT Metoclopramide HCl (Metoclopramide Hcl Inj 5 Mg/Ml 2 Ml Vial) 10 mg IV NOW STA Stop: 08/30/24 10:56 Last Admin: 08/30/24 11:00 Dose: 10 mg Documented By: CHANDRAKANT Ondansetron HCl (Ondansetron Inj 2 Mg/Ml 2 Ml Vial) 4 mg IV NOW STA Stop: 08/30/24 08:21 Last Admin: 08/30/24 08:28 Dose: 4 mg Documented By: CHANDRAKANT Pantoprazole Sodium (Pantoprazole Bolus/Drip) 1 each IV NOW STA Stop: 08/30/24 11:00 Last Admin: 08/30/24 12:42 Dose: Not Given Documented By: CHANDRAKANT Imaging Data Radiologist's Impression: Chest X-Ray 08/30/24 08:20 XR chest 1V portable HISTORY: 23 years-old Male SOB acute shortness of breath COMPARISON: 01/29/2022 TECHNIQUE: AP view the chest FINDINGS: Cardiomediastinal and hilar silhouettes are within normal limits. No pneumothorax, pleural effusion or airspace consolidation. Azygos lobe and fissure. Bones appear grossly intact. IMPRESSION: No acute process ACT 112: Negative or not required by law. The above report was generated using voice recognition software. It may contain grammatical, syntax or spelling errors. Electronically signed by: Jay Castaneda M.D. 08/30/2024 8:55 AM Abdomen/Pelvis CT 08/30/24 08:23 CT OF THE ABDOMEN AND PELVIS WITH CONTRAST CLINICAL HISTORY: Upper abdominal pain and vomiting. COMPARISON STUDY: CT of the abdomen and pelvis April 27, 2022. TECHNIQUE: Following IV administration of 94 mL of Optiray, axial images of the abdomen and pelvis were obtained from the lung bases to the proximal femurs. Images were reviewed in the axial, sagittal, and coronal planes. IV contrast was administered without complication. Automated exposure control was utilized for the study. A dose lowering technique was utilized adhering to the principles of ALARA. CT DOSE: 1539.58 mGy.cm FINDINGS: Visualized portions of the lung bases are unremarkable. No pneumatosis, free air or portal venous gas is present. There is circumferential wall thickening of the distal esophagus. Probable hepatic steatosis. There is no biliary or pancreatic ductal dilatation. Spleen, adrenal glands, kidneys and pancreas are unremarkable. There is no peripancreatic or pericholecystic infiltration. There is no hydronephrosis. The appendix is normal. The caliber and wall thickness of small and large bowel are normal. There is no free fluid. Major vasculature is patent. There is no lymphadenopathy. There are no fluid collections. IMPRESSION: 1. Normal appendix. No bowel obstruction. No bowel wall thickening. 2. Distal esophageal wall thickening suggestive of esophagitis. ACT 112: Negative or not required by law. Electronically signed by: Allan Murillo M.D. 08/30/2024 9:58 AM Discharge Plan Visit Data Chief Complaint: Abdominal Pain Stated Complaint: VOMITING, DEHYDRATION, BODYACHES ED Provider: Ricardo Her Discharge Problem: Intractable vomiting Forms Stand Alone Forms: [email or web address] Prescriptions Prescriptions: No Action No Known Home Medications Referrals Referrals: PCP,NO [Primary Care Provider] -
[2024-08-30] MEDS: SODIUM CHLORIDE 0.9% 1,000 ML IV ONE ×2 (08:28→10:48)
[2024-08-30] MEDS: ONDANSETRON INJ 2 MG/ML 2 ML VIAL IV STA (08:28)
--- NOTE | 2024-08-30 08:56 | XRay Report ---
XR chest 1V portable HISTORY: 23 years-old Male SOB acute shortness of breath COMPARISON: 01/29/2022 TECHNIQUE: AP view the chest FINDINGS: Cardiomediastinal and hilar silhouettes are within normal limits. No pneumothorax, pleural effusion o r airspace consolidation. Azygos lobe and fissure. Bones appear grossly intact. IMPRESSION: No acute process ACT 112: Negative or not required by law. The above report was generated using voice recognition software. It may contain grammatical, syntax o r spelling errors. Electronically signed by: Jay Castaneda M.D. 08/30/2024 8:55 AM
[2024-08-30 09:15] LABS: Alanine Aminotransferase 30 U/L (7-52); Albumin Globulin Ratio 1.7 (0.9-2); Albumin Level 5.5 gm/dl (3.4-5.0); Alkaline Phosphatase 86 U/L (34-104); Anion Gap 21 (3-11); BUN Creatinine Ratio 26.4 (10-20); Bilirubin,Total 2.8 mg/dl (0.2-1.0); Blood Urea Nitrogen 46 mg/dl (6-23); Calcium 10.4 mg/dl (8.6-10.3); Carbon Dioxide 29 mmol/L (21-32); Chloride 83 mmol/L (98-107); Creatinine Clr Calc Pharmacy 82.6 ml/min; Globulin 3.3 gm/dl (2.5-4.0); Glucose 159 mg/dl (70-99(Fasting)); Lipase 11 U/L (11-82); Sodium 133 mmol/L (136-145); Total Protein 8.8 gm/dl (6.0-8.3); Troponin I High Sensitivity 13.8 pg/ml (0-20)
[2024-08-30] MEDS: LORazepam 2 MG/1 ML VIAL IV STA (09:16)
[2024-08-30] MEDS: OPTIRAY 320 100ml IV ONE (09:30)
[2024-08-30 09:31] LABS: Adenovirus PCR Not Detected (NotDetected); Bordetella parapertussis PCR Not Detected (NotDetected); Bordetella pertussis PCR Not Detected (NotDetected); Chlamydia pneumoniae PCR Not Detected (NotDetected); Coronavirus 229E PCR Not Detected (NotDetected); Coronavirus CoV-2 (COVID19)PCR Not Detected (NotDetected); Coronavirus HKU1 PCR Not Detected (NotDetected); Coronavirus NL63 PCR Not Detected (NotDetected); Coronavirus OC43PCR Not Detected (NotDetected); Human Metapneumovirus PCR Not Detected (NotDetected); Influenza A PCR Not Detected (NotDetected); Influenza B PCR Not Detected (NotDetected); Mycoplasma pneumoniae PCR Not Detected (NotDetected); Parainfluenza Virus 1 PCR Not Detected (NotDetected); Parainfluenza Virus 2 PCR Not Detected (NotDetected); Parainfluenza Virus 3 PCR Not Detected (NotDetected); Parainfluenza Virus 4 PCR Not Detected (NotDetected); Respiratory Syncytial VirusPCR Not Detected (NotDetected); Rhinovirus/Enterovirus PCR Not Detected (NotDetected)
[2024-08-30 09:51] LABS: Potassium 2.4 mmol/L (3.5-5.1)
--- NOTE | 2024-08-30 09:59 | CT Scan Report ---
CT OF THE ABDOMEN AND PELVIS WITH CONTRAST CLINICAL HISTORY: Upper abdominal pain and vomiting. COMPARISON STUDY: CT of the abdomen and pelvis April 27, 2022. TECHNIQUE: Following IV administration of 94 mL of Optiray, axial images of the abdomen and pelvis we re obtained from the lung bases to the proximal femurs. Images were reviewed in the axial, sagittal, and coronal planes. IV contrast was administered without complication. Automated exposure control wa s utilized for the study. A dose lowering technique was utilized adhering to the principles of ALARA . CT DOSE: 1539.58 mGy.cm FINDINGS: Visualized portions of the lung bases are unremarkable. No pneumatosis, free air or portal venous gas is present. There is circumferential wall thickening of the distal esophagus. Probable hep atic steatosis. There is no biliary or pancreatic ductal dilatation. Spleen, adrenal glands, kidneys and pancreas are unremarkable. There is no peripancreatic or pericholecystic infiltration. There is n o hydronephrosis. The appendix is normal. The caliber and wall thickness of small and large bowel are normal. There is no free fluid. Major vasculature is patent. There is no lymphadenopathy. There are no fluid collections. IMPRESSION: 1. Normal appendix. No bowel obstruction. No bowel wall thickening. 2. Distal esophageal wall thickening suggestive of esophagitis. ACT 112: Negative or not required by law. Electronically signed by: Allan Murillo M.D. 08/30/2024 9:58 AM
[2024-08-30 10:57] LABS: Mean Platelet Volume 10.8 fL (9.4-12.4); Platelet Count 282 K/uL (130-400); White Blood Count 21.11 K/ul (4.8-10.8)
[2024-08-30] MEDS: diphenhydrAMINE 50 MG/ML VIAL IV STA (11:00)
[2024-08-30] MEDS: METOCLOPRAMIDE HCL INJ 5 MG/ML 2 ML VIAL IV STA (11:00)
[2024-08-30] MEDS: POTASSIUM CHLORIDE 40 MEQ in D5W AND 1/2NSS 1,000 ML IV SCH (11:19)
[2024-08-30 11:25] LABS: Basophils # (auto) 0.02 K/uL (0.00-0.20); Basophils % (auto) 0.1 %; Eosinophils # (auto) 0.06 K/uL (0.00-0.50); Eosinophils % (auto) 0.3 %; Hemoglobin 17.5 g/dl (14.0-18.0); Immature Granulocytes # (auto) 0.14 K/uL (0.01-0.20); Immature Granulocytes % (auto) 0.7 %; Lymphocytes # (auto) 1.89 K/uL (1.20-3.40); Mean Corpuscular Hemoglobin 31.8 pg (25.0-34.0); Mean Corpuscular Hgb Conc 37.2 g/dL (32.0-36.0); Mean Corpuscular Volume 85.5 fL (80.0-100.0); Monocytes # (auto) 2.61 K/uL (0.11-0.59); Monocytes % (auto) 12.4 %; Neutrophils # (auto) 16.39 K/uL (1.40-6.50); Neutrophils % (auto) 77.5 %; RDW Standard Deviation 37.4 fL (36.4-46.3)
--- NOTE | 2024-08-30 11:26 | History & Physical Report ---
Date of Service August 30, 2024 Assessment & Plan (1) Intractable vomiting: (2) GERD (gastroesophageal reflux disease): Plan Mr. Schafer is a 23 year old male that presented today from home with complaints of Intractable nausea and vomiting for the past few days. He was admitted for similar symptoms 2021 and he was diagnosed with cannabis hyperemesis. During that admission he did have an EGD under the care of GI. His EGD at that time revealed: Patient will be admitted for further evaluation and management of his epigastric abdominal pain tractable nausea. Continue Protonix drip, renal ultrasound to rule out any hydronephrosis or obstruction of, repeat BMP at 1600 to monitor for electrolyte improvement, antiemetics, and capsaicin cream. Will keep NPO and place on IV Ceftriaxone for empiric abx and will adjust based on culture results (urine, stool). Also added FOBT. Intractable emesis: Acute CTAP in ED: Distal esophageal thickening suggesting of 'esophagitis' Protonix gtt ordered in ED; continue for now Reglan and Benadryl for emesis symptoms started in ED and helpful; continue Capsasin Cream ordered Most recent EGD in 2021; Obtain Mg/Phos levels; replete as needed Denies hematochezia; obtain FOBT Will cover empiric with IV Ceftriaxone GI Consultation placed Leukocytosis: WBC 22 Pt had fever. chills; obtain BC x1 obtained in ED Added on Procalcitonin Ordered stool sample/culture UA ordered Empirically treat with Ceftriaxone and adjust as needed pending culture results Hypokalemia: serum K+ 2.4; has D5 0.45 NS with 40 KCL infusing @ 150mL/hour x1 bag; add an additional K+ riders x4 Recheck BMP at 1600 AGUSTIN: Serum creatinine 1.74; normal at baseline Repeat BMP at 1600 Obtain Renal US to r/o hydronephrosis if no improvement Disposition: PCP: none Code Status; Full VTE Prophylaxis: Teds and SCDs for now. I spent a total of 83 minutes coordinating, documenting, and providing care for this patient excluding time spent inthe performance of separately billed services or time spent by another provider/QHP. History of Present Illness Chief Complaint: epigastric pain Primary Care Provider: NO PCP Mr. Schafer is a 23 year old male that presented today from home with complaints of Intractable nausea and vomiting for the past few days. He was admitted for similar symptoms 2021 and he was diagnosed with cannabis h yperemesis. During that admission he did have an EGD under the care of GI. His EGD at that time revealed: Today in the ED his lab work reveals leukocytosis 21,000, hyponatremia 133, hypokalemia 2.4, elevated BUN 46, AGUSTIN with creatinine 1.74: Creatinine at baseline is normal. Mildly elevated troponin 13.8 to ischemic demand bio fire negative. Lipase normal. CTAP revealed distal esophageal thickening suggestive of esophagitis. No small bowel obstruction signs of pancreatitis identified. Chest x-ray negative for acute cardiopulmonary disease. In the ED patient received 2 L 0.9 tenderness, then placed on D51/2 NS with 40 KCL. Protonix drip given Reglan for patient's emesis symptoms. Patient will be admitted for further evaluation and management of his epigastric abdominal pain tractable nausea. Continue Protonix drip, renal ultrasound to rule out any hydronephrosis or obstruction of, repeat BMP at 1600 to monitor for electrolyte improvement, antiemetics, and capsaicin cream. Will keep NPO and place on IV Ceftriaxone for empiric abx and will adjust based on culture results (urine, stool). Also added FOBT. Allergies Allergy/AdvReac Type Severity Reaction Status Date / Time No Known Allergies Allergy Verified 04/27/22 15:45 Home Medications Medication Instructions Recorded Confirmed Type No Known Home Medications 08/30/24 08/30/24 History Past Med/Surg History Problem List (Updated 08/30/24 @ 11:22 by AMANDA Wade) Intractable vomiting Hematemesis (Acute) Vomiting (Acute) GERD (gastroesophageal reflux disease) Medical History No pertinent past medical history No pertinent family history Surgical History No pertinent past surgical history Family History Other No pertinent family history Social History Smoking Status: Former smoker Tobacco Type: Cigarettes Cigarettes Per Day: 20; Second Hand Exposure: No; Do You Dip or Chew Tobacco: Yes; Hx Alcohol Use: Yes Alcohol type: beer Hx Substance Use: Yes Prescribed Medications: Marijuana Last Used Substance: Days (ago) Last Used Substance Other:: 30 days ago Preferred Language: Sinhala Communication Ability: Effective Turning Lathe Tender Required: No Beliefs That Will Affect Care: None Current Living Situation: Family Feels Safe at Home: Yes Assistive Devices: None Review of Systems Review of Systems: Neuro: (-) Falls, trauma, slurred speech HEENT: (-) MARY, dizziness, dysphagia, visual or auditory changes CV: (-) CP, palpitations, swelling Resp: (-) SOB GI: (-) appetite changes, N/V/D, bowel changes : (-) urinary changes Skin: (-) rashes Psych: (-) anxiety, depression Physical Exam Physical Exam: Neuro: AAOx4, PERRLA, no aphagia, memory changes, CNII-XII grossly intact HEENT: head normocephalic, moist mucus membranes CV: S1/S2, (-) M/G/R, (-) edema, cap refill < 3 seconds Resp: Lungs CTA in all [place]. On RA GI: Abdomen S/NT/ND, Ax4 bowel sounds, (-) CVA tenderness Musculoskeletal: 5/5 B/L UE strength, 5/5 B/L LE strength. No gait disturbance Skin: (-) rashes , (-) erythema. Psych: euthymic mood Results & Data Results & Data Vital Signs (Past 12 Hours) Vital Signs Temp Pulse Pulse Resp BP BP Pulse Ox 08/30/24 10:12 132/80 08/30/24 10:12 132/80 08/30/24 10:12 71 19 98 08/30/24 09:18 72 18 149/83 H 99 08/30/24 08:46 79 08/30/24 08:24 08/30/24 07:50 36.6 C 101 H 20 137/84 96 O2 Del Method 08/30/24 10:12 08/30/24 10:12 08/30/24 10:12 Room Air 08/30/24 09:18 Room Air 08/30/24 08:46 08/30/24 08:24 Room Air 08/30/24 07:50 Room Air Laboratory Results Short CBC 08/30/24 08/30/24 Range/Units 08:10 09:13 WBC Cancelled 21.11 H Hgb Cancelled Hct Cancelled Plt Count Cancelled 282 BMP 08/30/24 08/30/24 08:10 09:16 Sodium 133 L Potassium TNP 2.4 L* Chloride 83 L Carbon Dioxide 29 BUN 46 H Creatinine 1.74 H Glucose 159 H Calcium 10.4 H Liver Function 08/30/24 08/30/24 Range/Units 08:10 09:16 Total Bilirubin 2.8 H (0.2-1.0) mg/dl AST TNP 40 H ALT 30 (7-52) U/L Alkaline Phosphatase 86 (34-104) U/L Albumin 5.5 H (3.4-5.0) gm/dl Diagnostic Findings Chest X-Ray 08/30/24 08:20 XR chest 1V portable HISTORY: 23 years-old Male SOB acute shortness of breath COMPARISON: 01/29/2022 TECHNIQUE: AP view the chest FINDINGS: Cardiomediastinal and hilar silhouettes are within normal limits. No pneumothorax, pleural effusion or airspace consolidation. Azygos lobe and fissure. Bones appear grossly intact. IMPRESSION: No acute process ACT 112: Negative or not required by law. The above report was generated using voice recognition software. It may contain grammatical, syntax or spelling errors. Electronically signed by: Jay Castaneda M.D. 08/30/2024 8:55 AM Abdomen/Pelvis CT 08/30/24 08:23 CT OF THE ABDOMEN AND PELVIS WITH CONTRAST CLINICAL HISTORY: Upper abdominal pain and vomiting. COMPARISON STUDY: CT of the abdomen and pelvis April 27, 2022. TECHNIQUE: Following IV administration of 94 mL of Optiray, axial images of the abdomen and pelvis were obtained from the lung bases to the proximal femurs. Images were reviewed in the axial, sagittal, and coronal planes. IV contrast was administered without complication. Automated exposure control was utilized for the study. A dose lowering technique was utilized adhering to the principles of ALARA. CT DOSE: 1539.58 mGy.cm FINDINGS: Visualized portions of the lung bases are unremarkable. No pneumatosis, free air or portal venous gas is present. There is circumferential wall thickening of the distal esophagus. Probable hepatic steatosis. There is no biliary or pancreatic ductal dilatation. Spleen, adrenal glands, kidneys and pancreas are unremarkable. There is no peripancreatic or pericholecystic infiltration. There is no hydronephrosis. The appendix is normal. The caliber and wall thickness of small and large bowel are normal. There is no free fluid. Major vasculature is patent. There is no lymphadenopathy. There are no fluid collections. IMPRESSION: 1. Normal appendix. No bowel obstruction. No bowel wall thickening. 2. Distal esophageal wall thickening suggestive of esophagitis. ACT 112: Negative or not required by law. Electronically signed by: Allan Murillo M.D. 08/30/2024 9:58 AM Code Status & VTE Plan Code Status Full Code in the event of cardiac or respiratory arrest VTE Prophylaxis Plan VTE Prophylaxis will be ordered: Yes Supervising Physician Co-Signing Physician Notes 23-year-old man with PMH of esophagitis, cannabis hyperemesis, medical noncompliance presents today with complaint of abdominal pain, nausea and vomiting for about 3 days. He reports decreased appetite, he reports multiple vomiting every day and also reports noting blood in the vomitus. He denies fever, reports sore throat and cough with whitish sputum. Reports not moving bowel in the last 3 days. Denies pain or burning while passing urine. He reports his last marijuana was 5 days ago, reports quitting smoking about 5 months ago, reports last alcohol drink was 1 year ago. Denies other recreational drug use. Labs reviewed, leukocytosis noted at 21.1K, procalcitonin negative. NA of 133 and K of 2.4, likely secondary to nausea, vomiting, poor appetite prior to arrival. BUN and creatinine elevated, 46 and 1.74 respectively. Total bili and AST slightly elevated. Respiratory pathogen panel. Admitting CXR with no acute finding. Admitting CTAP with distal esophageal wall thickening suggestive of esophagitis. Likely upper GI bleed in the setting of esophagitis/Intractable emesis, ? esophageal tear: Patient with history of esophagitis and noncompliance. Reports vomiting with blood for last 3 days prior to arrival. N.p.o., GI consult, PPI drip. Nausea medications.No p.o. KCl given esophagitis. Leukocytosis: Pro-Justin negative, will get blood culture and urine and emesis. Empiric Rocephin. Will get urine drug screen. Hypokalemia: IV fluids with potassium plus K riders. Repeat BMP at 4 PM. Acute kidney injury: Creatinine elevated, continue with IV fluid, follow-up repeat BMP at 4 PM and tomorrow morning. On exam: GENERAL: Alert and oriented x3. NAD, on RA. HEENT: No pallor, no icterus. Pupils equal, round and reactive to light. Oral mucosa dry. NECK: No JVD, no neck masses. HEART: S1 and S2 heard. Regular rate and rhythm. No murmur, no gallop. RESPIRATORY SYSTEM: Normal AP diameter. No accessory muscle use. No wheezing, no crackles. ABDOMEN: Soft, bowel sounds present, epigastric tender, no distention. CENTRAL NERVOUS SYSTEM: No facial droop. Speech is clear. Obeys simple commands. Moves extremities. EXTREMITIES: No edema, no erythema seen. I have seen and examined the patient and have discussed the case with the provider above. I agree with the assessment and plan as stated. Time spent separately: 30 min
[2024-08-30] MEDS: PANTOprazole 80 MG in DEXTROSE 5% 100 ML IV ONE (11:34)
[2024-08-30] MEDS ORDERED: CAPSAICIN CR 0.075% 60 GM TUBE EXT PRN (12:02)
[2024-08-30] MEDS ORDERED: diphenhydrAMINE 50 MG/ML VIAL IV PRN (12:05)
[2024-08-30] MEDS: cefTRIAXone SODIUM 2,000 MG/50 ML BAG IV ONE (12:37)
[2024-08-30] MEDS: PANTOprazole 40 MG in DEXTROSE 5% MINI-B 100 ML IV SCH (12:38)
[2024-08-30] MEDS: PANTOPRAZOLE BOLUS/DRIP IV STA (12:42)
[2024-08-30] MEDS: POTASSIUM CHLORIDE / WTR 10 MEQ/100 ML PLCT IV SCH (12:42)
--- NOTE | 2024-08-30 12:55 | Electrocardiogram Report ---
Test Reason : Blood Pressure : */* mmHG Vent. Rate : 66 BPM Atrial Rate : 66 BPM P-R Int : 134 ms QRS Dur : 118 ms QT Int : 470 ms P-R-T Axes : 70 60 55 degrees QTcB Int : 492 ms Poor data quality, interpretation may be adversely affected Normal sinus rhythm Possible Left atrial enlargement Prolonged QT Abnormal ECG When compared with ECG of 27-Apr-2022 12:08, No significant change was found Confirmed by Jamshid Hickey ([id number]) on 08/30/2024 12:55:10 PM Referred By: Confirmed By: Jamshid Hickey
[2024-08-30 13:17] LABS: Appearance Urine Clear (Clear); Bacteria Urine Automated None Seen (None Seen); Bilirubin Urine Negative (Negative); Blood Urine Negative (Negative); Cast Urine Automated 0-2 /lpf (0-2); Color Urine Yellow; Epithelial Cell Urine Auto 0-2 /hpf (0-2); Glucose Urine UA Negative (Negative); Ketones Urine 2+ (Negative); Leukocyte Esterase Urine Negative (Negative); Nitrite Urine Negative (Negative); Protein Urine 1+ (Negative); RBC Urine Automated 0-2 /hpf (0-2); Specific Gravity Urine > 1.045 (1.000-1.030); Urobilinogen Urine Negative (Negative); WBC Urine Automated 0-5 /hpf (0-5)
[2024-08-30 14:10] LABS: Amphetamines+Metham, Urine Neg (Neg); Barbiturates, Urine Neg (Neg); Benzodiazepine, Urine Neg (Neg); Cocaine, Urine Neg (Neg); Fentanyl, Urine Neg (Neg); MDMA (Ecstacy), Urine Neg (Neg); Marijuana, Urine Pos (Neg); Methadone, Urine Neg (Neg); Opiate, Urine Neg (Neg); Phencyclidine, Urine Neg (Neg)
[2024-08-30] MEDS ORDERED: POLYETHYLENE (MIRALAX) 17 GM PACK PO PRN (14:56)
[2024-08-30] MEDS ORDERED: MAGNESIUM HYDROXIDE SUSP 30 ML UDC PO PRN (14:56)
[2024-08-30] MEDS ORDERED: ACETAMINOPHEN 325 MG TAB PO PRN (14:56)
[2024-08-30] MEDS: ONDANSETRON INJ 2 MG/ML 2 ML VIAL IV PRN (15:08)
--- NOTE | 2024-08-30 15:25 | Gastrointestinal Consultation ---
Date of Consultation August 30, 2024 Assessment & Plan (1) Vomiting: -Continue IV Protonix -Replete K; If improved in AM, consider EGD tomorrow on 08/31/24 -Monitor LFTs; suspect Gilbert's may cause the bump in his T bili but will obtain a direct bili and follow-up in the AM -Monitor H/H -Can rule out viral illness, but patient also does have ongoing marijuana use and has been diagnosed in the past with cannabinoid hyperemesis syndrome History of Present Illness Reason for Consultation: "esophagitis" Requesting Physician: Hospitalist Attending Physician: Deangelo Chery MD History of Present Illness Patient is a 23 yo male who presented to the ED due to several days of nausea & vomiting. He notes he was feeling normal prior to the onset of these symptoms. He notes that he first noticed that his appetite decreased. He then developed vomiting. He notes he vomited many times and then eventually had blood tinged emesis. In the ED, his lab work indicated a WBC >20,000 and a K of 2.4, BUN of 46, Cr 1.74. T bili 2.8. It appears his T bili has been chronically elevated. AST 40, ALT 30. AP 86. Lipase normal. CTAP revealed distal esophageal thickening suggestive of esophagitis. No small bowel obstruction signs of pancreatitis identified. Chest x-ray negative for acute cardiopulmonary disease. Tox screen positive for marijuana. He has a prior diagnosis of cannabinoid hyperemesis. He had an EGD in 2021 and was found to have esophagitis. He notes he did not c ontinue to take a PPI. Allergies Allergy/AdvReac Type Severity Reaction Status Date / Time No Known Allergies Allergy Verified 04/27/22 15:45 Home Medications Medication Instructions Recorded Confirmed Type No Known Home Medications 08/30/24 08/30/24 History Patient History Medical History No pertinent past medical history No pertinent family history Surgical History No pertinent past surgical history Family History Other No pertinent family history Social History Smoking Status: Former smoker Tobacco Type: Cigarettes Cigarettes Per Day: 20; Second Hand Exposure: No; Do You Dip or Chew Tobacco: Yes; Hx Alcohol Use: Yes Alcohol type: beer Hx Substance Use: Yes Prescribed Medications: Marijuana Last Used Substance: Days (ago) Last Used Substance Other:: 30 days ago Preferred Language: Urugu[place] Communication Ability: Effective Mold Capper Helper Required: No Beliefs That Will Affect Care: None Current Living Situation: Family Feels Safe at Home: Yes Assistive Devices: None Review of Systems Constitutional: no fever and no chills Respiratory: no cough and no dyspnea Gastrointestinal: + nausea and + vomiting; no abdominal pa in Psychiatric: no problem reported Physical Exam Constitutional: well developed Respiratory: normal respiratory effort Cardiovascular: Rate/Rhythm: regular rate Gastrointestinal (Abdomen): normal bowel sounds, soft, nontender, no hepatosplenomegaly Psychiatric: Orientation: alert and oriented x 3 Results & Data Vital Signs (Past 12 Hours) Vital Signs Temp Pulse Pulse Pulse Resp BP BP 08/30/24 15:05 36.7 C 83 16 125/87 08/30/24 14:11 08/30/24 14:00 156/87 H 08/30/24 14:00 64 23 08/30/24 13:33 74 21 08/30/24 13:12 72 19 08/30/24 13:03 71 23 08/30/24 13:00 151/83 H 08/30/24 12:48 71 21 08/30/24 12:43 68 08/30/24 12:42 71 18 08/30/24 12:21 84 14 08/30/24 12:06 77 19 08/30/24 12:00 132/76 08/30/24 11:54 65 20 08/30/24 11:51 66 23 08/30/24 11:42 74 19 08/30/24 11:39 69 18 08/30/24 11:21 74 27 H 08/30/24 11:00 142/80 H 08/30/24 11:00 97 H 18 08/30/24 10:54 102 H 15 08/30/24 10:48 78 22 08/30/24 10:12 132/80 08/30/24 10:12 132/80 08/30/24 10:12 132/80 08/30/24 10:12 71 19 08/30/24 09:18 72 18 149/83 H 08/30/24 08:46 79 08/30/24 08:24 08/30/24 07:50 36.6 C 101 H 20 137/84 Pulse Ox O2 Del Method 08/30/24 15:05 99 Room Air 08/30/24 14:11 Room Air 08/30/24 14:00 08/30/24 14:00 95 Room Air 08/30/24 13:33 98 08/30/24 13:12 95 08/30/24 13:03 95 08/30/24 13:00 08/30/24 12:48 100 08/30/24 12:43 08/30/24 12:42 96 08/30/24 12:21 99 08/30/24 12:06 95 08/30/24 12:00 08/30/24 11:54 93 08/30/24 11:51 92 08/30/24 11:42 99 08/30/24 11:39 99 08/30/24 11:21 97 08/30/24 11:00 08/30/24 11:00 95 08/30/24 10:54 97 08/30/24 10:48 96 08/30/24 10:12 08/30/24 10:12 08/30/24 10:12 08/30/24 10:12 98 Room Air 08/30/24 09:18 99 Room Air 08/30/24 08:46 08/30/24 08:24 Room Air 08/30/24 07:50 96 Room Air PG Care Time/CCT Total # of Minutes Spent Total Time Spent with Patient: Total time spent is greater than 50% in coordination of care (as documented) at patient's floor/unit and/or counseling patient: Coding Level of Care Code 95398 OFFICE CONSULT LVL 4/40M Diagnoses Vomiting R11.10
[2024-08-30] MEDS: METOCLOPRAMIDE HCL INJ 5 MG/ML 2 ML VIAL IV SCH (16:06)
[2024-08-30] MEDS ORDERED: METOCLOPRAMIDE HCL 10 MG in SYRINGE 0 ML IV SCH (17:00)
[2024-08-30 23:15] LABS: Appearance Urine Clear (Clear); Bacteria Urine Automated None Seen (None Seen); Bilirubin Urine Negative (Negative); Blood Urine Negative (Negative); Cast Urine Automated 0-2 /lpf (0-2); Color Urine Yellow; Epithelial Cell Urine Auto 0-2 /hpf (0-2); Glucose Urine UA Negative (Negative); Ketones Urine Negative (Negative); Leukocyte Esterase Urine Negative (Negative); Nitrite Urine Negative (Negative); Protein Urine Trace (Negative); RBC Urine Automated 0-2 /hpf (0-2); Urobilinogen Urine Negative (Negative); WBC Urine Automated 0-5 /hpf (0-5)
[2024-08-31] MEDS: ALUMINUM/MAGNESIUM SUSP 30 ML UDC PO PRN (03:03)
[2024-08-31 06:24] LABS: Hematocrit (blood only) 45.5 % (42.0-52.0); Hemoglobin 16.8 g/dl (14.0-18.0); Mean Corpuscular Hemoglobin 32.1 pg (25.0-34.0); Mean Corpuscular Hgb Conc 36.9 g/dL (32.0-36.0); Mean Platelet Volume 10.5 fL (9.4-12.4); Platelet Count 194 K/uL (130-400); RDW Standard Deviation 38.4 fL (36.4-46.3); Red Blood Count 5.23 M/uL (4.70-6.10)
[2024-08-31 06:42] LABS: Albumin Globulin Ratio 1.7 (0.9-2); Albumin Level 4.4 gm/dl (3.4-5.0); BUN Creatinine Ratio 15.2 (10-20); Bilirubin Direct 0.4 mg/dl (0-0.2); Bilirubin,Total 1.8 mg/dl (0.2-1.0); Calcium 9.1 mg/dl (8.6-10.3); Creatinine Clr Calc Pharmacy 156.1 ml/min; Globulin 2.6 gm/dl (2.5-4.0); Magnesium 2.3 mg/dl (1.7-2.4); Phosphorus 2.1 mg/dl (2.5-4.9); Potassium 3.5 mmol/L (3.5-5.1)
[2024-08-31] MEDS ORDERED: PROMETHAZINE 12.5 MG/50.5 ML BAG IV PRN (07:55)
[2024-08-31] MEDS ORDERED: ONDANSETRON INJ 2 MG/ML 2 ML VIAL IV PRN (07:57)
[2024-08-31] MEDS ORDERED: haloperidoL 1 MG TAB PO PRN (07:59)
[2024-08-31] MEDS: HALOPERIDOL LACTATE 5 MG/ML 1 ML VIAL IM PRN (09:19)
[2024-08-31] MEDS: D5W AND LACTATED RINGERS 1,000 ML IV SCH (09:20)
--- NOTE | 2024-08-31 09:41 | Anesthesiology Consultation ---
Date of Service August 31, 2024 Assessment & Plan (1) Encounter for pre-operative examination: Chart Review Chart Review: Acceptable Risk for Surgery, Patient NOT seen in Pre Admission Testing and order entry representative initiated Consults Requested none Proposed Anesthesia Anesthesia Type: MAC History Surgery Operation Date: 08/31/24 16:45 Proposed Procedures p Esophagogastroduodenoscopy Dr. Saul Hughes MD Height/Weight Height: 6 ft 1 in Weight: 103 kg Allergies Allergy/AdvReac Type Severity Reaction Status Date / Time No Known Allergies Allergy Verified 04/27/22 15:45 Medications Home Medications Medication Instructions Recorded Confirmed Last Taken No Known Home Medications 08/30/24 08/30/24 Unknown Active Medications Generic Name Dose Route Start Last Admin Trade Name Freq PRN Reason Stop Dose Admin Al Hydrox/Mg Hydrox/Simethicone 15 ml 08/30/24 14:56 08/31/24 03:03 Aluminum/Magnesium Susp 30 Ml Udc PO 09/29/24 14:55 15 ml Q4H PRN Administration Dyspepsia Haloperidol Lactate 2.5 mg 08/31/24 08:03 08/31/24 09:19 Haloperidol Lactate 5 Mg/Ml 1 Ml Vial IM 09/30/24 08:02 2.5 mg Q8 PRN Administration nausea Potassium Chloride 40 meq/ 1,020 mls @ 125 mls/hr 08/30/24 10:45 08/31/24 04:14 Dextrose/Sodium Chloride IV 08/31/24 10:44 125 mls/hr .Q8H10M HUMBLE Administration Pantoprazole Sodium 40 mg/ 100 mls @ 20 mls/hr 08/30/24 11:15 08/31/24 08:07 Dextrose IV 09/29/24 11:14 8 mg/hr Q5H HUMBLE 20 mls/hr Administration 8 MG/HR Dextrose/Lactated Ringer's 1,000 mls @ 125 mls/hr 08/31/24 08:00 08/31/24 09:20 D5w And Lactated Ringers IV 09/01/24 07:59 125 mls/hr .Q8H HUMBLE Administration Past Medical History Medical History No pertinent past medical history No pertinent family history Past Family History Family History Other No pertinent family history Past Surgical History Surgical History No pertinent past surgical history Social History Smoking Status: Former smoker tobacco type: cigarettes Smoking cigarettes per day: 20 Do You Dip or Chew Tobacco: Yes Hx Alcohol Use: Yes Alcohol type: beer alcohol intake frequency: a few times a month Hx Substance Use: Yes substance use type: marijuana Last Used Substance: Days (ago) Last Used Substance Other:: 5 Physical Exam Vital Signs Last Vital Signs Temp 36.9 C 08/31/24 07:47 Pulse 59 L 08/31/24 07:47 Resp 18 08/31/24 07:47 BP 137/82 08/31/24 07:47 Pulse Ox 96 08/31/24 07:47 O2 Del Method Room Air 08/31/24 07:47 Testing Laboratory Results 08/31/24 05:59 08/31/24 05:59 Urine Color Yellow 08/30/24 22:33 Urine Appearance Clear (Clear) 08/30/24 22:33 Urine pH 8.0 (4.5-7.5) H 08/30/24 22:33 Ur Specific [place] 1.020 (1.000-1.030) 08/30/24 22:33 Urine Protein Trace (Negative) H 08/30/24 22:33 Urine Glucose (UA) Negative (Negative) 08/30/24 22:33 Urine Ketones Negative (Negative) 08/30/24 22:33 Urine Nitrite Negative (Negative) 08/30/24 22:33 Ur Leukocyte Esterase Negative (Negative) 08/30/24 22:33 Urine WBC (Auto) 0-5 /hpf (0-5) 08/30/24 22:33 Urine RBC (Auto) 0-2 /hpf (0-2) 08/30/24 22:33 U Hyaline Cast (Auto) 0-2 /lpf (0-2) 08/30/24 22:33 U Epithel Cells (Auto) 0-2 /hpf (0-2) 08/30/24 22:33 Urine Bacteria (Auto) None Seen (None Seen) 08/30/24 22:33 Electrocardiogram Date: 08/30/24 Test Reason : Blood Pressure : */* mmHG Vent. Rate : 66 BPM Atrial Rate : 66 BPM P-R Int : 134 ms QRS Dur : 118 ms QT Int : 470 ms P-R-T Axes : 70 60 55 degrees QTcB Int : 492 ms Poor data quality, interpretation may be adversely affected Normal sinus rhythm Possible Left atrial enlargement Prolonged QT Abnormal ECG When compared with ECG of 27-Apr-2022 12:08, No significant change was found Confirmed by Jamshid Hickey ([id number]) on 08/30/2024 12:55:10 PM Chest X-Ray Date: 08/30/24 HISTORY: 23 years-old Male SOB acute shortness of breath COMPARISON: 01/29/2022 TECHNIQUE: AP view the chest FINDINGS: Cardiomediastinal and hilar silhouettes are within normal limits. No pneumothorax, pleural effusion or airspace consolidation. Azygos lobe and fissure. Bones appear grossly intact. IMPRESSION: No acute process
--- NOTE | 2024-08-31 10:07 | History & Physical Bridge Note ---
Date of Service August 31, 2024 History & Physical Bridge Note I have examined the patient, reviewed the History & Physical and in the interval since the performance of the History & Physical I have noted the following changes of clinical significance: no changes noted H/H 16.8/45.5. Can proceed with EGD today. Continue PPI. Keep NPO.
[2024-08-31] MEDS: SODIUM CHLORIDE 0.9% 500 ML IV SCH (10:19)
--- NOTE | 2024-08-31 11:10 | Communication Note ---
Date of Service: August 31, 2024 EGD Grade D esophagitis with linear ulcers mucosal edema extending from the GE junction all the way to the cricopharyngeus. Biopsies performed to exclude long segment Cortes's and eosinophilic esophagitis. Patient should be on twice daily PPI therapy for 8 to 12 weeks. He can then decrease the once a day. Recommend follow-up EGD in 6 months. Evaluate for Cortes's in the areas of current ulceration
--- NOTE | 2024-08-31 11:14 | GI REPORT ---
[facility] Patient: ANUP WEBBER : 2000 Sex at : Male Age: 23 Years Procedure: Upper GI endoscopy Date: 08/31/2024 Attending Physician: Dileep Hughes MD Referring MD: Fredrick Walker MD Indications: - Dysphagia - Nausea and vomiting Medications: - Monitored Anesthesia Care Complications: - No immediate complications. Estimated Blood Loss: - Estimated blood loss was minimal. Procedure: - The egd scope was introduced through the mouth and advanced to the second part of the duodenum. - The upper GI endoscopy was accomplished without difficulty. - The patient tolerated the procedure well. Findings: - Patient has severe erosive esophagitis extending from the cricopharyngeus all the way to the GE junction. There is white exudative material especially in the distal third of the esophagus. Mild narrowing of the distal esophagus not dilated based on severity of the ulceration. Biopsies done in distal proximal esophagus for possible associated eosinophilic esophagitis. - The entire examined stomach was normal. - The examined duodenum was normal. Impression: - Patient has severe erosive esophagitis extending from the cricopharyngeus all the way to the GE junction. There is white exudative material especially in the distal third of the esophagus. Mild narrowing of the distal esophagus not dilated based on severity of the ulceration. Biopsies done in distal proximal esophagus for possible associated eosinophilic esophagitis. - Normal stomach. - Normal examined duodenum. - No specimens collected. Recommendation: - Severe esophagitis. This may be from vomiting or other cause of vomiting. Treat with twice daily PPI therapy for 8 to 12 weeks and then 40 mg/day after. Follow-up EGD in 6 months to evaluate for healing and for evaluation potential Cortes's underlying the current ulcerations. Patient should abstain from marijuana use to decrease vomiting or potential cyclic vomiting disorder. Procedure Code(s): - 48602, Esophagogastroduodenoscopy, flexible, transoral; diagnostic, including collection of specimen(s) by brushing or washing, when performed (separate procedure) Diagnosis Code(s): - R13.10, Dysphagia, unspecified CPT(R) - 2022 copyright [employer]. All Rights Reserved. The CPT codes, CCI edits and ICD codes generated are intended as suggestions and were generated based on input data. These codes are preliminary and upon insurance coder review may be revised to meet current compliance and payer requirements. The provider is responsible for the final determination of appropriate codes, and modifiers. Dileep Hughes MD This document has been electronically signed. Note Initiated:08/31/2024 Note Completed:08/31/2024 11:13 AM [id number]
[2024-08-31] MEDS: LIDOCAINE 2% 2 ML VIAL/AMP(20MG/ML) INFIL ONE ×2 (11:59→13:05)
[2024-08-31] MEDS: PROPOFOL IV EMULSION 10 MG/ML 20 ML VIAL IV ONE ×2 (11:59)
[2024-08-31 12:02] VITALS: BP 147/82; PULSE 63; RESP 18; TEMP 98.2; O2SAT 98
[2024-08-31] MEDS: cefTRIAXone SODIUM 2,000 MG/50 ML BAG IV SCH (12:13)
[2024-08-31] MEDS: ONDANSETRON INJ 2 MG/ML 2 ML VIAL ONE (13:05)
[2024-08-31] MEDS: ondansetron HCL 8 MG in DEXTROSE 5% 50 ML IV SCH (13:22)
--- NOTE | 2024-08-31 13:59 | Anesthesiology Progress Note ---
Date of Service August 31, 2024 Anesthesia Post Procedure Vital Signs Vital Signs: Temp Pulse Pulse Pulse Resp BP BP 08/31/24 12:01 36.8 C 63 18 147/82 H 08/31/24 11:43 76 16 131/76 08/31/24 11:27 96 H 16 135/78 08/31/24 11:12 94 H 16 118/63 08/31/24 10:12 37.3 C 60 18 131/85 08/31/24 07:47 36.9 C 59 L 18 137/82 08/31/24 07:00 51 L 08/31/24 03:45 37 C 61 16 138/71 08/30/24 22:33 36.9 C 69 18 137/83 08/30/24 21:52 77 08/30/24 19:26 37 C 78 18 134/67 08/30/24 15:05 36.7 C 83 16 125/87 08/30/24 15:00 72 08/30/24 15:00 08/30/24 14:11 08/30/24 14:00 156/87 H 08/30/24 14:00 64 23 Pulse Ox O2 Del Method O2 Del Method 08/31/24 12:01 98 Room Air 08/31/24 11:43 96 Room Air 08/31/24 11:27 96 Room Air 08/31/24 11:12 96 Room Air 08/31/24 10:12 98 Room Air 08/31/24 07:47 96 Room Air 08/31/24 07:00 08/31/24 03:45 95 Room Air 08/30/24 22:33 98 Room Air 08/30/24 21:52 08/30/24 19:26 97 Room Air 08/30/24 15:05 99 Room Air 08/30/24 15:00 08/30/24 15:00 Room Air 08/30/24 14:11 Room Air 08/30/24 14:00 08/30/24 14:00 95 Room Air Pain Intensity Abdomen: Pain Intensity: 2 Transfer of Care Handoff Completed per policy Notes Mental Status: alert / awake / arousable and participated in evaluation Patient Amnestic to Procedure: Yes Nausea / Vomiting: adequately controlled Pain: adequately controlled Airway Patency, RR, SpO2: stable & adequate BP & HR: stable & adequate Hydration State: stable & adequate Anesthetic Complications: no major complications apparent
[2024-08-31] MEDS ORDERED: ONDANSETRON INJ 2 MG/ML 2 ML VIAL IV SCH (14:00)
[2024-08-31] MEDS ORDERED: METOCLOPRAMIDE HCL INJ 5 MG/ML 2 ML VIAL IV SCH (14:00)
--- NOTE | 2024-08-31 18:19 | Discharge Summary ---
Discharge Summary Date of Service August 31, 2024 Principal Dx & Hospital Course #1 = Principal Diagnosis (1) Intractable vomiting: (2) GERD (gastroesophageal reflux disease): Plan Mr. Schafer is a 23 year old male that presented today from home with complaints of Intractable nausea and vomiting for the past few days. He was admitted for similar symptoms 2021 and he was diagnosed with cannabis hyperemesis. During that admission he did have an EGD under the care of GI. His EGD at that time revealed: Patient will be admitted for further evaluation and management of his epigastric abdominal pain tractable nausea. Continue Protonix drip, renal ultrasound to rule out any hydronephrosis or obstruction of, repeat BMP at 1600 to monitor for electrolyte improvement, antiemetics, and capsaicin cream. Will keep NPO and place on IV Ceftriaxone for empiric abx and will adjust based on culture results (urine, stool). Also added FOBT. Intractable emesis: -Acute -CTAP in ED: Distal esophageal thickening suggesting of 'esophagitis' -patient smokes a lot of marijuana, diagnosed with canabis hyperemesis syndrome in past -EGD showed esophageal ulcers Plan: -bid protonix for 12 weeks -eating solids and not vomiting, ok for discharge home -discussed at length with patient need to stop smoking and using marijuana Leukocytosis: WBC 22 -improved with fluids -likely reactionary to nausea/vomiting Hypokalemia: -resolved AGUSTIN: -resolved Notes For Next Care Provider Mr. Schafer is a 23 year old male that presented today from home with complaints of Intractable nausea and vomiting for the past few days. He was admitted for similar symptoms 2021 and he was diagnosed with cannabis hyperemesis. In the ED, patient intractable nausea and vomiting and was admitted to medicine for further workup. On medicine, GI was consulted and EGD performed. EGD revealed significant esophageal ulcerations and recommended Protonix for 12 weeks and follow-up outpatient. Patient able to tolerate solid food without nausea or vomiting and is medically ready for discharge at this time. Discussed with patient at length need to quit marijuana and concerns that if he does not he may it may lead to a perforated esophagus and possibly . He is understanding. Discussed need to follow-up with PCP and GI outpatient, patient expresses understanding Medication Changes From Visit -zofran, haldol prn (for intractable nausea/vomiting), protonix Admission HPI Per Admitting Provider Mr. Schafer is a 23 year old male that presented today from home with complaints of Intractable nausea and vomiting for the past few days. He was admitted for similar symptoms 2021 and he was diagnosed with cannabis hyperemesis. During that admission he did have an EGD under the care of GI. His EGD at that time revealed: Today in the ED his lab work reveals leukocytosis 21,000, hyponatremia 133, hypokalemia 2.4, elevated BUN 46, AGUSTIN with creatinine 1.74: Creatinine at baseline is normal. Mildly elevated troponin 13.8 to ischemic demand bio fire negative. Lipase normal. CTAP revealed distal esophageal thickening suggestive of esophagitis. No small bowel obstruction signs of pancreatitis identified. Chest x-ray negative for acute cardiopulmonary disease. In the ED patient received 2 L 0.9 tenderness, then placed on D51/2 NS with 40 KCL. Protonix drip given Reglan for patient's emesis symptoms. Patient will be admitted for further evaluation and management of his epigastric abdominal pain tractable nausea. Continue Protonix drip, renal ultrasound to rule out any hydronephrosis or obstruction of, repeat BMP at 1600 to monitor for electrolyte improvement, antiemetics, and capsaicin cream. Will keep NPO and place on IV Ceftriaxone for empiric abx and will adjust based on culture results (urine, stool). Also added FOBT. Discharge Exam Gen: A&O 3 NAD HEENT: NCAT, EOMI, not icteric. External ears normal. No rhinorrhea. Moist mucous membranes. Neck: Supple, full range of motion, no observable masses, No meningeal sign. Lungs: No Respiratory distress. CV: RRR, no edema. Abdomen: Soft, nondistended, No rebound tenderness. MSK: No joint swelling, no redness. Skin: No rashes, petechiae, lesions. Normal color per patient. Neuro: Normal Gait, Grossly intact. Psych: Appropriate for situation. Updated Medication List Medication Instructions Recorded Confirmed Type haloperidol 1 mg tablet 1 mg PO HS PRN nausea and vomiting 08/31/24 Rx #7 tabs ondansetron 4 mg disintegrating 4 mg PO HS PRN nausea and vomiting 08/31/24 Rx tablet 4 days #30 tabs pantoprazole 40 mg granules 40 mg PO BID 12 weeks #30 ea 08/31/24 Rx delayed-release for susp in packet (Protonix) Hospital Stay Data Consultations 08/30/24 11:18 ED Decision to Admit Stat 08/30/24 11:58 Consult Gastroenterology Routine Procedures Performed Operation Date: 08/31/24 16:45 Actual Procedures p EGD Biopsy Cytology - Dileep Hughes MD Diagnostic Imagining Performed 08/30/24 08:23 CT Abd and Pelvis [CT abd pelvis IV con only] Stat Pending Results Patient Have Any Pending Studies at Discharge: No Discharge Instructions Given to Patient (Per Discharging Provider) 1. You will likely have nausea/vomiting on and off for the next few days to weeks. Please stay hydrated and it should improve. 2. Please take nexium 40 mg PO bid as ordered. 3. Follow up with a PCP, GI. 4. Take zofran if getting nauseus, if a really bad day can take haldol 1mg at bedtime. 5. Please refrain from any further cannabis use, which is likely cause of frequent nausea and vomiting, and given your ulcers, could be life threatening. Total Time Total Time Spent Total Time Spent (In Minutes): I spent a total of 35 minutes in direct patient care, including [id number] time with the patient and/or family, reviewing medical records, ordering and reviewing diagnostic tests, and coordinating care with other healthcare providers. This time includes: history taking, physical examination, medical decision making, counseling, ECG interpretation, imaging interpretation, lab interpretation, orders, and education, excluding time spent in the performance of separately billed services.
[2024-09-03 13:42] LABS: Marijuana Quant, GCMS Urine 842 ng/mL (<5)
== END 2024-08-31 15:58 | disposition home or self-care (01) | DRG 392 ==
LOC: ED 07:45 → 2W 11:12 → SUATTDRO 11:12 → 2W 14:11